=== PATIENT | male | born 1935 | race Caucasian/White ===

== ENCOUNTER → 2016-12-15 | Outpatient (CLI) | payer MEDICARE, BC ==
[2016-12-15 13:43] LABS: ALT 35 U/L (21-72); AST 34 U/L (17-59); Alkaline Phosphatase 103 U/L (38-126); Anion Gap 9 mmol/L; Blood Urea Nitrogen 14 mg/dL (9-20); Calcium 9.7 mg/dL (8.4-10.2); Carbon Dioxide 30 mmol/L (22-30); Chloride 105 mmol/L (98-107); Cholesterol 143 mg/dL (<200); Glucose 87 mg/dL (74-99); HDL Cholesterol 44 mg/dL (40-60); Non-African American GFR(MDRD) >60 (>60 ml/min/1.73 sqM); Potassium 3.6 mmol/L (3.5-5.1); Sodium 144 mmol/L (137-145); Total Bilirubin 0.7 mg/dL (0.2-1.3); Total Protein 6.8 g/dL (6.3-8.2); Triglycerides 144 mg/dL (<150)
== END | disposition home or self-care (01) ==
LOC: LABWHC1 12:28
PROVIDERS: ATTEND Internal Medicine Interventional Cardiology
DX: E78.2 Mixed hyperlipidemia (principal)
CPT/HCPCS: 36415; 80053; 80061

== ENCOUNTER 2019-06-10 16:38 | Inpatient (IN) | payer MEDICARE, BC ==
[2019-06-10] MEDS ORDERED: DIPH,PERTUS(ACELL)TETVAC-LF 0.5 ML VIAL IM ONE (16:50)
[2019-06-10] MEDS ORDERED: SODIUM CHLORIDE 0.9% 500 ML 500 ML IV STA (16:50)
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
[2019-06-10 17:11] LABS: Basophils % (A) 0 %; Eosinophils # (A) 0.3 k/uL (0-0.7); Eosinophils % (A) 4 %; HCT 39.7 % (39.0-53.0); HGB 13.1 gm/dL (13.0-17.5); Lymphocytes # (A) 1.3 k/uL (1.0-4.8); Lymphocytes % (A) 19 %; MCH 30.1 pg (25.0-35.0); MCV 91.3 fL (80.0-100.0); Monocytes # (A) 0.5 k/uL (0-1.0); Monocytes % (A) 7 %; Neutrophils # (A) 4.5 k/uL (1.3-7.7); Neutrophils % (A) 67 %; Platelet Count 288 k/uL (150-450); RBC 4.35 m/uL (4.30-5.90); RDW 14.6 % (11.5-15.5); WBC 6.7 k/uL (3.8-10.6)
[2019-06-10 17:20] LABS: ALT 21 U/L (21-72); AST 35 U/L (17-59); African American GFR (CKD) 71 (>60 ml/min/1.73 sqM); Alcohol <10 mg/dL; Alkaline Phosphatase 108 U/L (38-126); Anion Gap 6 mmol/L; Blood Urea Nitrogen 15 mg/dL (9-20); Calcium 9.7 mg/dL (8.4-10.2); Carbon Dioxide 30 mmol/L (22-30); Chloride 105 mmol/L (98-107); Glucose 121 mg/dL (74-99); Potassium 3.4 mmol/L (3.5-5.1); Sodium 141 mmol/L (137-145); Total Bilirubin 0.6 mg/dL (0.2-1.3); Total Protein 6.9 g/dL (6.3-8.2)
[2019-06-10 17:24] LABS: INR 1.5 (<1.2); Partial Thromboplastin Time 29.3 sec (22.0-30.0); Prothrombin Time 15.1 sec (9.0-12.0)
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
[2019-06-10] MEDS ORDERED: NALOXONE 0.4 MG/ML 1 ML VIAL IV PRN (19:12)
[2019-06-10] MEDS ORDERED: ACETAMINOPHEN TAB 325 MG TAB PO PRN (19:12)
[2019-06-11] MEDS ORDERED: TEMAZEPAM 15 MG CAP PO PRN (00:15)
[2019-06-11] MEDS: ACETAMINOPHEN TAB 500 MG TAB PO SCH ×2 (00:37→21:16)
[2019-06-11 01:57] LABS: Appearance,Urine Clear (Clear); Bilirubin,Urine Negative (Negative); Blood,Urine Negative (Negative); Color,Urine Yellow; Glucose,Urine (UA) Negative (Negative); Ketones,Urine Negative (Negative); Leukocyte Esterase,Urine Trace (Negative); Mucus,Urine Rare /hpf; Nitrite,Urine Negative (Negative); PH, Urine 5.5 (5.0-8.0); Protein,Urine Trace (Negative); RBC,Urine <1 /hpf (0-5); Specific Gravity,Urine 1.026 (1.001-1.035); Squamous Epithelial Cell,Urine 1 /hpf (0-4); Urobilinogen,Urine <2.0 mg/dL (<2.0)
[2019-06-11 02:08] LABS: Amphetamine Screen,Urine Not Detected (NotDetected); Barbiturate Screen,Urine Not Detected (NotDetected); Benzodiazepines Screen,Urine Not Detected (NotDetected); Cocaine Screen,Urine Not Detected (NotDetected); Methadone Screen, Urine Not Detected (NotDetected); Opiate Screen,Urine Not Detected (NotDetected); Oxycodone Screen, Urine Not Detected (NotDetected); Phencyclidine Screen,Urine Not Detected (NotDetected); Tricyclic Antidepressant,Urine Not Detected (NotDetected); Urn Cannabinoid Scrn Not Detected (NotDetected)
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
[2019-06-11] MEDS: HYDROCHLOROTHIAZIDE 25 MG TAB PO SCH (07:19)
[2019-06-11] MEDS: MULTIVITAMINS, THERA 1 EACH TAB PO SCH (07:19)
[2019-06-11] MEDS: ASPIRIN 81 MG PO SCH (07:19)
[2019-06-11] MEDS: ATORVASTATIN 40 MG TAB PO SCH (07:19)
[2019-06-11] MEDS: FINASTERIDE 5 MG TAB PO SCH (07:19)
[2019-06-11] MEDS: CHOLECALCIFEROL 1,000 UNIT TAB PO SCH (07:19)
[2019-06-11] MEDS: NICOTINE 14MG/24HR PATCH TRANSDERM SCH (07:20)
[2019-06-11] MEDS: SERTRALINE 100 MG TAB PO SCH (07:20)
[2019-06-11 08:24] LABS: INR 1.5 (<1.2)
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
[2019-06-11] MEDS: BACITRACIN 500 UNIT/GM OINT 28.4 GM TUBE TOPICAL SCH ×2 (15:23→22:36)
[2019-06-11] MEDS: traMADol 50 MG TAB PO SCH ×2 (16:49→21:15)
[2019-06-11] MEDS: ALPRAZolam 0.25 MG TAB PO PRN (21:15)
[2019-06-11] MEDS: diphenhydrAMINE 25 MG CAP PO SCH (21:16)
[2019-06-12 07:58] LABS: Basophils % (A) 0 %; Eosinophils # (A) 0.3 k/uL (0-0.7); Eosinophils % (A) 3 %; HCT 32.8 % (39.0-53.0); HGB 10.4 gm/dL (13.0-17.5); INR 1.5 (<1.2); Lymphocytes % (A) 10 %; MCH 29.8 pg (25.0-35.0); MCHC 31.8 g/dL (31.0-37.0); MCV 93.5 fL (80.0-100.0); Mean Platelet Volume 7.2; Monocytes # (A) 0.6 k/uL (0-1.0); Monocytes % (A) 6 %; Neutrophils # (A) 7.9 k/uL (1.3-7.7); Neutrophils % (A) 79 %; Platelet Count 228 k/uL (150-450); Prothrombin Time 14.9 sec (9.0-12.0); RBC 3.51 m/uL (4.30-5.90); RDW 14.5 % (11.5-15.5)
[2019-06-12] MEDS: CHOLECALCIFEROL 1,000 UNIT TAB PO SCH (08:03)
[2019-06-12] MEDS: FINASTERIDE 5 MG TAB PO SCH (08:03)
[2019-06-12] MEDS: SERTRALINE 100 MG TAB PO SCH (08:03)
[2019-06-12] MEDS: ASPIRIN 81 MG PO SCH (08:03)
[2019-06-12] MEDS: MULTIVITAMINS, THERA 1 EACH TAB PO SCH (08:03)
[2019-06-12] MEDS: ATORVASTATIN 40 MG TAB PO SCH (08:03)
[2019-06-12] MEDS: NICOTINE 14MG/24HR PATCH TRANSDERM SCH (08:03)
[2019-06-12] MEDS: HYDROCHLOROTHIAZIDE 25 MG TAB PO SCH (08:03)
[2019-06-12] MEDS: traMADol 50 MG TAB PO SCH ×4 (08:04→20:56)
[2019-06-12] MEDS: BACITRACIN 500 UNIT/GM OINT 28.4 GM TUBE TOPICAL SCH ×2 (08:04→20:45)
[2019-06-12 08:05] LABS: African American GFR (CKD) >90 (>60 ml/min/1.73 sqM); Anion Gap 5 mmol/L; Blood Urea Nitrogen 12 mg/dL (9-20); Calcium 9.2 mg/dL (8.4-10.2); Carbon Dioxide 30 mmol/L (22-30); Chloride 104 mmol/L (98-107); Glucose 89 mg/dL (74-99); Potassium 3.1 mmol/L (3.5-5.1); Sodium 139 mmol/L (137-145)
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
[2019-06-12] MEDS: ALPRAZolam 0.25 MG TAB PO PRN ×2 (09:54→20:55)
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
[2019-06-12] MEDS: ACETAMINOPHEN TAB 500 MG TAB PO SCH (20:55)
[2019-06-12] MEDS: diphenhydrAMINE 25 MG CAP PO SCH (20:56)
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
[2019-06-13 09:13] LABS: African American GFR (CKD) >90 (>60 ml/min/1.73 sqM); Anion Gap 5 mmol/L; Blood Urea Nitrogen 11 mg/dL (9-20); Carbon Dioxide 31 mmol/L (22-30); Chloride 104 mmol/L (98-107); Glucose 101 mg/dL (74-99); Sodium 140 mmol/L (137-145)
[2019-06-13 09:19] LABS: INR 1.2 (<1.2); Potassium 2.7 mmol/L (3.5-5.1); Prothrombin Time 12.3 sec (9.0-12.0)
[2019-06-13 09:27] LABS: Basophils % (A) 0 %; Eosinophils # (A) 0.5 k/uL (0-0.7); Eosinophils % (A) 6 %; HCT 32.3 % (39.0-53.0); HGB 10.4 gm/dL (13.0-17.5); Lymphocytes # (A) 0.9 k/uL (1.0-4.8); Lymphocytes % (A) 10 %; MCH 30.2 pg (25.0-35.0); MCHC 32.1 g/dL (31.0-37.0); MCV 93.9 fL (80.0-100.0); Mean Platelet Volume 7.2; Monocytes # (A) 0.5 k/uL (0-1.0); Monocytes % (A) 6 %; Neutrophils # (A) 6.6 k/uL (1.3-7.7); Neutrophils % (A) 76 %; Platelet Count 246 k/uL (150-450); RBC 3.44 m/uL (4.30-5.90); RDW 14.7 % (11.5-15.5); WBC 8.7 k/uL (3.8-10.6)
[2019-06-13] MEDS: ASPIRIN 81 MG PO SCH (09:39)
[2019-06-13] MEDS: CHOLECALCIFEROL 1,000 UNIT TAB PO SCH (09:39)
[2019-06-13] MEDS: SERTRALINE 100 MG TAB PO SCH (09:40)
[2019-06-13] MEDS: FINASTERIDE 5 MG TAB PO SCH (09:40)
[2019-06-13] MEDS: HYDROCHLOROTHIAZIDE 25 MG TAB PO SCH (09:40)
[2019-06-13] MEDS: MULTIVITAMINS, THERA 1 EACH TAB PO SCH (09:42)
[2019-06-13] MEDS: traMADol 50 MG TAB PO SCH ×4 (09:43→22:41)
[2019-06-13] MEDS: BACITRACIN 500 UNIT/GM OINT 28.4 GM TUBE TOPICAL SCH ×2 (09:44→23:03)
[2019-06-13] MEDS: NICOTINE 14MG/24HR PATCH TRANSDERM SCH (09:44)
[2019-06-13] MEDS: ATORVASTATIN 40 MG TAB PO SCH (09:44)
[2019-06-13] MEDS ORDERED: Potassium Replacement Protocol 1 EACH MISC MISCELLANE PRN (09:47)
[2019-06-13] MEDS: POTASSIUM CHLORIDE ER 20 MEQ TAB.ER PO SCH ×5 (09:57→17:34)
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
[2019-06-13] MEDS ORDERED: WARFARIN 2.5 MG TAB PO SCH (18:00)
[2019-06-13] MEDS: ACETAMINOPHEN TAB 500 MG TAB PO SCH (21:14)
[2019-06-13] MEDS: diphenhydrAMINE 25 MG CAP PO SCH (21:15)
[2019-06-13] MEDS: ALPRAZolam 0.25 MG TAB PO PRN (21:15)
[2019-06-14 08:21] VITALS: BP 140/65; PULSE 51; RESP 16; TEMP 98.1
[2019-06-14 09:03] LABS: INR 1.1 (<1.2); Prothrombin Time 11.1 sec (9.0-12.0)
[2019-06-14] MEDS: CHOLECALCIFEROL 1,000 UNIT TAB PO SCH (10:21)
[2019-06-14] MEDS: ASPIRIN 81 MG PO SCH (10:21)
[2019-06-14] MEDS: SERTRALINE 100 MG TAB PO SCH (10:21)
[2019-06-14] MEDS: MULTIVITAMINS, THERA 1 EACH TAB PO SCH (10:21)
[2019-06-14] MEDS: traMADol 50 MG TAB PO SCH (10:22)
[2019-06-14] MEDS: FINASTERIDE 5 MG TAB PO SCH (10:22)
[2019-06-14] MEDS: BACITRACIN 500 UNIT/GM OINT 28.4 GM TUBE TOPICAL SCH (10:24)
[2019-06-14] MEDS: ATORVASTATIN 40 MG TAB PO SCH (10:24)
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
[2019-06-14] MEDS: HYDROCHLOROTHIAZIDE 25 MG TAB PO SCH (10:48)
== END 2019-06-14 12:28 | DRG 605 ==
LOC: EC 16:38 → 4SSUR 19:15 → OBSVTOIN 06-11 12:17
PROVIDERS: ADMIT Family Medicine; ATTEND Family Medicine
DX: S81.831A Puncture wound without foreign body, right lower leg, initial encounter (principal); I69.354 Hemiplegia and hemiparesis following cerebral infarction affecting left non-dominant side; I48.0 Paroxysmal atrial fibrillation; R00.1 Bradycardia, unspecified; R79.1 Abnormal coagulation profile; E87.6 Hypokalemia; F17.200 Nicotine dependence, unspecified, uncomplicated; I10 Essential (primary) hypertension; H91.90 Unspecified hearing loss, unspecified ear; H54.7 Unspecified visual loss; R26.9 Unspecified abnormalities of gait and mobility; Z79.01 Long term (current) use of anticoagulants; Z79.82 Long term (current) use of aspirin; Z79.899 Other long term (current) drug therapy; Z88.5 Allergy status to narcotic agent; Z95.2 Presence of prosthetic heart valve; Z85.51 Personal history of malignant neoplasm of bladder; Z86.14 Personal history of Methicillin resistant Staphylococcus aureus infection; Z86.79 Personal history of other diseases of the circulatory system; Z80.1 Family history of malignant neoplasm of trachea, bronchus and lung; Z82.49 Family history of ischemic heart disease and other diseases of the circulatory system; Z82.62 Family history of osteoporosis; W34.00XA Accidental discharge from unspecified firearms or gun, initial encounter; Y92.9 Unspecified place or not applicable
CPT/HCPCS: 36415; 71045; 72170; 80048; 80053; 80306; 80320; 81001; 83605; 84132; 84443; 84484; 85025; 85610; 85730; 86850; 86900; 86901; 90471; 90715; 93005; 96361; 96365; 99285

== ENCOUNTER 2019-06-30 13:50 | Emergency (ER) | payer MEDICARE, BC ==
[2019-06-30 14:02] VITALS: RESP 18
[2019-06-30] MEDS ORDERED: SODIUM CHLORIDE 0.9% 1,000 ML IV STA (14:08)
--- NOTE | 2019-06-30 14:09 | ED ---
Male Urogenital HPI - General Chief complaint: Urogenital Stated complaint: Blood in urine Time Seen by Provider: 06/30/19 13:54 Source: EMS, RN notes reviewed, old records reviewed Mode of arrival: EMS Limitations: physical limitation - History of Present Illness Initial comments: This is an 80-year-old male the ER for evaluation. Patient has history of prostate disease, history of bladder cancer, patient coming in for blood in the urine today. No significant abdominal pain. Patient is not lightheaded dizzy or weak. Patient does take Coumadin. Patient has no other significant complaints. No fevers. Does have history of UTI MD Complaint: dysuria (Hematuria) -: hour(s) Location: abdomen Radiation: none Severity: mild Consistency: constant Improves with: none Worsens with: urination indwelling catheter (History of needing Salcedo cath for urinary retention) Reports: urinary retention, blood in urine - Related Data Home Medications Medication Instructions Recorded Confirmed Acetaminophen/Diphenhydramine 2 tab PO HS 06/10/19 06/30/19 [Tylenol PM 500-25mg] Atorvastatin Calcium [Lipitor] 40 mg PO HS 06/10/19 06/30/19 Cholecalciferol [Vitamin D3 (25 1,000 unit PO DAILY 06/10/19 06/30/19 Mcg = 1000 Iu)] Hydrochlorothiazide 25 mg PO MOWEFR 06/10/19 06/30/19 Hydrochlorothiazide [Hydrodiuril] 12.5 mg PO SUTUTHSA 06/10/19 06/30/19 Multivitamins, Thera [Multivitamin 1 tab PO DAILY 06/10/19 06/30/19 (formulary)] Sertraline [Zoloft] 150 mg PO DAILY 06/10/19 06/30/19 Warfarin [Coumadin] 2.5 mg PO SUTUTHSA 06/10/19 06/30/19 ALPRAZolam [Xanax] 0.25 mg PO HS 06/30/19 06/30/19 Potassium Chloride ER [K-Dur 20] 20 meq PO DAILY 06/30/19 06/30/19 Warfarin Sodium [Coumadin] 5 mg PO MOWEFR 06/30/19 06/30/19 Previous Rx's Medication Instructions Recorded Cephalexin [Keflex] 500 mg PO Q6HR #28 cap 06/30/19 Allergies Allergy/AdvReac Type Severity Reaction Status Date / Time morphine AdvReac Hallucinati Verified 06/30/19 15:12 ons Review of Systems ROS Statement: Those systems with pertinent positive or pertinent negative responses have been documented in the HPI. ROS Other: All systems not noted in ROS Statement are negative. Past Medical History Past Medical History: Cancer, CVA/TIA Additional Past Medical History / Comment(s): aneurysm History of Any Multi-Drug Resistant Organisms: MRSA Date of last positivie culture/infection: 07/13/2014 MDRO Source:: Right Eye Past Surgical History: Bladder Surgery, Prostate Surgery Additional Past Surgical History / Comment(s): aortic valve rep. 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 Past Anesthesia/Blood Transfusion Reactions: No Reported Reaction Past Psychological History: No Psychological Hx Reported Smoking Status: Current every day smoker Past Alcohol Use History: None Reported Past Drug Use History: None Reported - Past Family History Father Family Medical History: Cancer Additional Family Medical History / Comment(s): lung cancer Mother Family Medical History: Hypertension Additional Family Medical History / Comment(s): osteoporosis General Exam Limitations: physical limitation General appearance: alert, in no apparent distress Head exam: Present: atraumatic, normocephalic, normal inspection Eye exam: Present: normal appearance, PERRL, EOMI. Absent: scleral icterus, conjunctival injection, periorbital swelling ENT exam: Present: normal exam, mucous membranes moist Neck exam: Present: normal inspection. Absent: tenderness, meningismus, lymphadenopathy Respiratory exam: Present: normal lung sounds bilaterally. Absent: respiratory distress, wheezes, rales, rhonchi, stridor Cardiovascular Exam: Present: regular rate, normal rhythm, normal heart sounds. Absent: systolic murmur, diastolic murmur, rubs, gallop, clicks GI/Abdominal exam: Present: soft, normal bowel sounds. Absent: distended, tenderness, guarding, rebound, rigid Extremities exam: Present: normal inspection, full ROM, normal capillary refill. Absent: tenderness, pedal edema, joint swelling, calf tenderness Back exam: Present: normal inspection Neurological exam: Present: alert, oriented X3, CN II-XII intact Psychiatric exam: Present: normal affect, normal mood Skin exam: Present: warm, dry, intact, normal color. Absent: rash Course Vital Signs 06/30/19 06/30/19 06/30/19 13:58 14:30 15:36 Temperature 98.3 F 98.7 F Pulse Rate 77 52 L 55 L Respiratory 18 18 18 Rate Blood Pressure 180/89 150/86 O2 Sat by Pulse 97 96 98 Oximetry Medical Decision Making - Medical Decision Making 80 female the ER for hematuria. Coumadin level is 2, we'll hold neck shows of Coumadin. Encouraged increased fluid intake, will place on antibiotics pending cultures and patient can be discharged - Lab Data Result diagrams: 06/30/19 14:08 06/30/19 14:08 Lab Results 06/30/19 06/30/19 06/30/19 Range/Units 14:08 14:08 14:08 WBC 13.7 H (3.8-10.6) k/uL RBC 3.92 L (4.30-5.90) m/uL Hgb 11.7 L (13.0-17.5) gm/dL Hct 37.1 L (39.0-53.0) % MCV 94.6 (80.0-100.0) fL MCH 29.9 (25.0-35.0) pg MCHC 31.6 (31.0-37.0) g/dL RDW 14.9 (11.5-15.5) % Plt Count 458 H (150-450) k/uL Neutrophils % 85 % Lymphocytes % 6 % Monocytes % 5 % Eosinophils % 2 % Basophils % 0 % Neutrophils # 11.6 H (1.3-7.7) k/uL Lymphocytes # 0.9 L (1.0-4.8) k/uL Monocytes # 0.7 (0-1.0) k/uL Eosinophils # 0.3 (0-0.7) k/uL Basophils # 0.0 (0-0.2) k/uL PT 19.2 H (9.0-12.0) sec INR 2.0 H (<1.2) APTT 33.1 H (22.0-30.0) sec Sodium 140 (137-145) mmol/L Potassium 3.6 (3.5-5.1) mmol/L Chloride 104 (98-107) mmol/L Carbon Dioxide 29 (22-30) mmol/L Anion Gap 7 mmol/L BUN 12 (9-20) mg/dL Creatinine 0.86 (0.66-1.25) mg/dL Est GFR (CKD-EPI)AfAm >90 (>60 ml/min/1.73 sqM) Est GFR (CKD-EPI)NonAf 80 (>60 ml/min/1.73 sqM) Glucose 114 H (74-99) mg/dL Calcium 9.7 (8.4-10.2) mg/dL Phosphorus 3.2 (2.5-4.5) mg/dL Magnesium 1.9 (1.6-2.3) mg/dL Total Bilirubin 0.9 (0.2-1.3) mg/dL AST 45 (17-59) U/L ALT 26 (21-72) U/L Alkaline Phosphatase 102 (38-126) U/L Creatine Kinase 160 (55-170) U/L Troponin I (0.000-0.034) ng/mL Total Protein 7.0 (6.3-8.2) g/dL Albumin 3.8 (3.5-5.0) g/dL Urine Color Urine Appearance (Clear) Urine RBC (0-5) /hpf Urine WBC (0-5) /hpf 06/30/19 06/30/19 Range/Units 14:08 14:19 WBC (3.8-10.6) k/uL RBC (4.30-5.90) m/uL Hgb (13.0-17.5) gm/dL Hct (39.0-53.0) % MCV (80.0-100.0) fL MCH (25.0-35.0) pg MCHC (31.0-37.0) g/dL RDW (11.5-15.5) % Plt Count (150-450) k/uL Neutrophils % % Lymphocytes % % Monocytes % % Eosinophils % % Basophils % % Neutrophils # (1.3-7.7) k/uL Lymphocytes # (1.0-4.8) k/uL Monocytes # (0-1.0) k/uL Eosinophils # (0-0.7) k/uL Basophils # (0-0.2) k/uL PT (9.0-12.0) sec INR (<1.2) APTT (22.0-30.0) sec Sodium (137-145) mmol/L Potassium (3.5-5.1) mmol/L Chloride (98-107) mmol/L Carbon Dioxide (22-30) mmol/L Anion Gap mmol/L BUN (9-20) mg/dL Creatinine (0.66-1.25) mg/dL Est GFR (CKD-EPI)AfAm (>60 ml/min/1.73 sqM) Est GFR (CKD-EPI)NonAf (>60 ml/min/1.73 sqM) Glucose (74-99) mg/dL Calcium (8.4-10.2) mg/dL Phosphorus (2.5-4.5) mg/dL Magnesium (1.6-2.3) mg/dL Total Bilirubin (0.2-1.3) mg/dL AST (17-59) U/L ALT (21-72) U/L Alkaline Phosphatase (38-126) U/L Creatine Kinase (55-170) U/L Troponin I 0.030 (0.000-0.034) ng/mL Total Protein (6.3-8.2) g/dL Albumin (3.5-5.0) g/dL Urine Color Dark Red Urine Appearance Bloody (Clear) Urine RBC >182 H (0-5) /hpf Urine WBC >182 H (0-5) /hpf - EKG Data -: EKG Interpreted by Me (EKG shows sinus bradycardia rate of 56, NC 206, QRS 02, QTc 451) Disposition Clinical Impression: Urinary retention Disposition: HOME SELF-CARE Condition: Good Instructions (If sedation given, give patient instructions): Urinary Retention in Men (ED), Urinary Tract Infection in Men (ED) Prescriptions: Cephalexin [Keflex] 500 mg PO Q6HR #28 cap Is patient prescribed a controlled substance at d/c from ED?: No Referrals: Syed Caal MD [Primary Care Provider] - 1-2 days
[2019-06-30 14:21] LABS: Basophils % (A) 0 %; Eosinophils # (A) 0.3 k/uL (0-0.7); Eosinophils % (A) 2 %; HCT 37.1 % (39.0-53.0); HGB 11.7 gm/dL (13.0-17.5); Lymphocytes # (A) 0.9 k/uL (1.0-4.8); Lymphocytes % (A) 6 %; MCH 29.9 pg (25.0-35.0); MCHC 31.6 g/dL (31.0-37.0); MCV 94.6 fL (80.0-100.0); Mean Platelet Volume 6.8; Monocytes # (A) 0.7 k/uL (0-1.0); Monocytes % (A) 5 %; Neutrophils # (A) 11.6 k/uL (1.3-7.7); Neutrophils % (A) 85 %; Platelet Count 458 k/uL (150-450); RBC 3.92 m/uL (4.30-5.90); RDW 14.9 % (11.5-15.5); WBC 13.7 k/uL (3.8-10.6)
[2019-06-30 14:30] LABS: Partial Thromboplastin Time 33.1 sec (22.0-30.0); Prothrombin Time 19.2 sec (9.0-12.0)
[2019-06-30 14:31] LABS: ALT 26 U/L (21-72); AST 45 U/L (17-59); African American GFR (CKD) >90 (>60 ml/min/1.73 sqM); Albumin 3.8 g/dL (3.5-5.0); Alkaline Phosphatase 102 U/L (38-126); Anion Gap 7 mmol/L; Blood Urea Nitrogen 12 mg/dL (9-20); Calcium 9.7 mg/dL (8.4-10.2); Carbon Dioxide 29 mmol/L (22-30); Chloride 104 mmol/L (98-107); Creatine Kinase 160 U/L (55-170); Glucose 114 mg/dL (74-99); Magnesium 1.9 mg/dL (1.6-2.3); Non-African American GFR(CKD) 80 (>60 ml/min/1.73 sqM); Phosphorus 3.2 mg/dL (2.5-4.5); Potassium 3.6 mmol/L (3.5-5.1); Sodium 140 mmol/L (137-145); Total Bilirubin 0.9 mg/dL (0.2-1.3)
[2019-06-30 14:34] LABS: RBC,Urine >182 /hpf (0-5); WBC,Urine >182 /hpf (0-5)
[2019-06-30 14:35] VITALS: BP 150/86
[2019-06-30 14:38] LABS: Appearance,Urine Bloody (Clear); Color,Urine Dark Red
[2019-06-30] MEDS ORDERED: cefTRIAXone IN SWFI 1,000 MG/10 ML SYRINGE IVP STA (15:25)
[2019-06-30 15:39] VITALS: PULSE 55; TEMP 98.7
== END 2019-06-30 16:15 | disposition home or self-care (01) ==
LOC: EC 13:50
DX: R33.9 Retention of urine, unspecified (principal); R31.9 Hematuria, unspecified; F17.200 Nicotine dependence, unspecified, uncomplicated; Z79.01 Long term (current) use of anticoagulants; Z79.899 Other long term (current) drug therapy; Z88.5 Allergy status to narcotic agent; Z87.440 Personal history of urinary (tract) infections; Z98.890 Other specified postprocedural states; Z86.14 Personal history of Methicillin resistant Staphylococcus aureus infection; Z86.73 Personal history of transient ischemic attack (TIA), and cerebral infarction without residual deficits
CPT/HCPCS: 36415; 93005; 80053; 82550; 83735; 84100; 84484; 85025; 85610; 85730; 81001; 87086; 87077; 87186; 99284; 96374; 96361; J0696

== ENCOUNTER 2019-10-23 13:54 | Inpatient (IN) | payer MEDICARE, BC ==
[2019-10-23] MEDS ORDERED: SODIUM CHLORIDE 0.9% 1,000 ML IV STA (14:02)
--- NOTE | 2019-10-23 14:08 | ED ---
General Adult HPI - General Stated complaint: WEAKNESS Time Seen by Provider: 10/23/19 13:55 Source: patient, RN notes reviewed, old records reviewed - History of Present Illness Initial comments: This is an 84-year-old male who presents emergency Department complaining of weakness. Patient states she was unable to get up and walk on his own today. Patient states she has had a stroke and he has left-sided weakness in the leg and complete paralysis of the arm but he is able to get up and walk with a walker normally. Patient states today he just was unable to do it. Patient states he has been having difficulty sleeping over the last few nights. Patient denies any pain patient denies any recent trauma. Patient denies any falls. Patient denies any headache patient denies any numbness or focal weakness. Patient denies any chest pain or palpitations. Patient denies any recent fever chills or cough. Patient denies any shortness of breath or any difficulty breathing. Patient denies abdominal pain patient denies any nausea vomiting diarrhea. Patient denies any fever or chills. - Related Data Home Medications Medication Instructions Recorded Confirmed Acetaminophen/Diphenhydramine 2 tab PO HS 06/10/19 10/23/19 [Tylenol PM 500-25mg] Atorvastatin Calcium [Lipitor] 40 mg PO HS 06/10/19 10/23/19 Cholecalciferol [Vitamin D3 (25 2,000 unit PO DAILY 06/10/19 10/23/19 Mcg = 1000 Iu)] Hydrochlorothiazide 25 mg PO MOWEFR 06/10/19 10/23/19 Hydrochlorothiazide [Hydrodiuril] 12.5 mg PO SUTUTHSA 06/10/19 10/23/19 Multivitamins, Thera [Multivitamin 1 tab PO DAILY 06/10/19 10/23/19 (formulary)] Sertraline [Zoloft] 200 mg PO DAILY 06/10/19 10/23/19 Warfarin [Coumadin] 2.5 mg PO SUMOTUTHFRSA 06/10/19 10/23/19 Potassium Chloride ER [K-Dur 20] 20 meq PO DAILY 06/30/19 10/23/19 Warfarin Sodium [Coumadin] 5 mg PO WE 06/30/19 10/23/19 Aspirin EC [Ecotrin Low Dose] 81 mg PO DAILY 10/23/19 10/23/19 Finasteride [Proscar] 5 mg PO DAILY 10/23/19 10/23/19 amLODIPine [Norvasc] 5 mg PO HS 10/23/19 10/23/19 Allergies Allergy/AdvReac Type Severity Reaction Status Date / Time morphine AdvReac Hallucinati Verified 10/23/19 14:40 ons Review of Systems ROS Statement: Those systems with pertinent positive or pertinent negative responses have been documented in the HPI. ROS Other: All systems not noted in ROS Statement are negative. Past Medical History Past Medical History: Cancer, CVA/TIA Additional Past Medical History / Comment(s): aneurysm History of Any Multi-Drug Resistant Organisms: MRSA Date of last positivie culture/infection: 07/13/2014 MDRO Source:: Right Eye Past Surgical History: Bladder Surgery, Prostate Surgery Additional Past Surgical History / Comment(s): aortic valve rep. 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 Past Anesthesia/Blood Transfusion Reactions: No Reported Reaction Past Psychological History: No Psychological Hx Reported Smoking Status: Current every day smoker Past Alcohol Use History: None Reported Past Drug Use History: None Reported - Past Family History Father Family Medical History: Cancer Additional Family Medical History / Comment(s): lung cancer Mother Family Medical History: Hypertension Additional Family Medical History / Comment(s): osteoporosis General Exam - General Exam Comments Initial Comments: GENERAL: Patient is well-developed and well-nourished. Patient is nontoxic and well- hydrated and is in mild distress. ENT: Neck is soft and supple. No significant lymphadenopathy is noted. Oropharynx is clear. Moist mucous membranes. Neck has full range of motion without eliciting any pain. EYES: The sclera were anicteric and conjunctiva were pink and moist. Extraocular movements were intact and pupils were equal round and reactive to light. Eye lids were unremarkable. PULMONARY: Unlabored respirations. Good breath sounds bilaterally. No audible rales rhonchi or wheezing was noted. CARDIOVASCULAR: There is a regular rate and rhythm without any murmurs gallops or rubs. ABDOMEN: Soft and nontender with normal bowel sounds. SKIN: Skin is clear with no lesions or rashes and otherwise unremarkable. NEUROLOGIC: Patient is alert and oriented x3. Cranial nerves II through XII are grossly intact. Motor and sensory are also intact. Normal speech, volume and content. Symmetrical smile. MUSCULOSKELETAL: Patient is able to lift the left leg off the bed a little which she states is normal. Patient has no ability to move the left arm PSYCHIATRIC: Normal psychiatric evaluation. Course Vital Signs 10/23/19 10/23/19 13:56 14:46 Temperature 97.7 F Pulse Rate 73 81 Respiratory 18 18 Rate Blood Pressure 117/78 130/71 O2 Sat by Pulse 93 L 95 Oximetry Medical Decision Making - Medical Decision Making EKG showed normal sinus rhythm at 60 bpm DC interval 188 QRS is 96 QT interval 458 QTC is 487. Patient has some T-wave inversions in precordial leads which was seen on previous EKG. There are no ST segment elevation. I started the patient 2 g of Rocephin for the urinary tract infection. Patient also received a bolus of fluid in the emergency department. I spoke with Dr. Caal agreed to admit the patient admitted the patient wrote admitting orders. I continued antibiotics on the floor as well as fluids on the floor. - Lab Data Result diagrams: 10/23/19 14:10 10/23/19 14:10 Lab Results 10/23/19 10/23/19 10/23/19 Range/Units 14:10 14:10 14:10 WBC 22.2 H (3.8-10.6) k/uL RBC 4.28 L (4.30-5.90) m/uL Hgb 12.7 L (13.0-17.5) gm/dL Hct 38.7 L (39.0-53.0) % MCV 90.5 (80.0-100.0) fL MCH 29.7 (25.0-35.0) pg MCHC 32.9 (31.0-37.0) g/dL RDW 14.5 (11.5-15.5) % Plt Count 279 (150-450) k/uL Neutrophils % 90 % Lymphocytes % 4 % Monocytes % 5 % Eosinophils % 0 % Basophils % 0 % Neutrophils # 20.0 H (1.3-7.7) k/uL Lymphocytes # 0.9 L (1.0-4.8) k/uL Monocytes # 1.2 H (0-1.0) k/uL Eosinophils # 0.0 (0-0.7) k/uL Basophils # 0.0 (0-0.2) k/uL PT (9.0-12.0) sec INR (<1.2) APTT (22.0-30.0) sec Sodium 138 (137-145) mmol/L Potassium 3.1 L (3.5-5.1) mmol/L Chloride 100 (98-107) mmol/L Carbon Dioxide 30 (22-30) mmol/L Anion Gap 8 mmol/L BUN 11 (9-20) mg/dL Creatinine 0.88 (0.66-1.25) mg/dL Est GFR (CKD-EPI)AfAm >90 (>60 ml/min/1.73 sqM) Est GFR (CKD-EPI)NonAf 79 (>60 ml/min/1.73 sqM) Glucose 122 H (74-99) mg/dL Plasma Lactic Acid Abiel 2.2 H* (0.7-2.0) mmol/L Calcium 9.6 (8.4-10.2) mg/dL Magnesium 1.6 (1.6-2.3) mg/dL Total Bilirubin 1.0 (0.2-1.3) mg/dL AST 39 (17-59) U/L ALT 19 L (21-72) U/L Alkaline Phosphatase 120 (38-126) U/L Troponin I (0.000-0.034) ng/mL Total Protein 6.9 (6.3-8.2) g/dL Albumin 3.9 (3.5-5.0) g/dL Urine Color Urine Appearance (Clear) Urine pH (5.0-8.0) Ur Specific [place] (1.001-1.035) Urine Protein (Negative) Urine Glucose (UA) (Negative) Urine Ketones (Negative) Urine Blood (Negative) Urine Nitrite (Negative) Urine Bilirubin (Negative) Urine Urobilinogen (<2.0) mg/dL Ur Leukocyte Esterase (Negative) Urine RBC (0-5) /hpf Urine WBC (0-5) /hpf Urine WBC Clumps (None) /hpf Ur Squamous Epith Cells (0-4) /hpf Amorphous Sediment (None) /hpf Urine Bacteria (None) /hpf Urine Mucus (None) /hpf 10/23/19 10/23/19 10/23/19 Range/Units 14:10 14:10 14:10 WBC (3.8-10.6) k/uL RBC (4.30-5.90) m/uL Hgb (13.0-17.5) gm/dL Hct (39.0-53.0) % MCV (80.0-100.0) fL MCH (25.0-35.0) pg MCHC (31.0-37.0) g/dL RDW (11.5-15.5) % Plt Count (150-450) k/uL Neutrophils % % Lymphocytes % % Monocytes % % Eosinophils % % Basophils % % Neutrophils # (1.3-7.7) k/uL Lymphocytes # (1.0-4.8) k/uL Monocytes # (0-1.0) k/uL Eosinophils # (0-0.7) k/uL Basophils # (0-0.2) k/uL PT 20.9 H (9.0-12.0) sec INR 2.1 H (<1.2) APTT 35.5 H (22.0-30.0) sec Sodium (137-145) mmol/L Potassium (3.5-5.1) mmol/L Chloride (98-107) mmol/L Carbon Dioxide (22-30) mmol/L Anion Gap mmol/L BUN (9-20) mg/dL Creatinine (0.66-1.25) mg/dL Est GFR (CKD-EPI)AfAm (>60 ml/min/1.73 sqM) Est GFR (CKD-EPI)NonAf (>60 ml/min/1.73 sqM) Glucose (74-99) mg/dL Plasma Lactic Acid Abiel (0.7-2.0) mmol/L Calcium (8.4-10.2) mg/dL Magnesium (1.6-2.3) mg/dL Total Bilirubin (0.2-1.3) mg/dL AST (17-59) U/L ALT (21-72) U/L Alkaline Phosphatase (38-126) U/L Troponin I 0.027 (0.000-0.034) ng/mL Total Protein (6.3-8.2) g/dL Albumin (3.5-5.0) g/dL Urine Color Yellow Urine Appearance Cloudy (Clear) Urine pH 7.0 (5.0-8.0) Ur Specific [place] 1.017 (1.001-1.035) Urine Protein Trace H (Negative) Urine Glucose (UA) Negative (Negative) Urine Ketones Negative (Negative) Urine Blood Trace H (Negative) Urine Nitrite Positive (Negative) Urine Bilirubin Negative (Negative) Urine Urobilinogen <2.0 (<2.0) mg/dL Ur Leukocyte Esterase Large H (Negative) Urine RBC 10 H (0-5) /hpf Urine WBC >182 H (0-5) /hpf Urine WBC Clumps Many H (None) /hpf Ur Squamous Epith Cells <1 (0-4) /hpf Amorphous Sediment Rare H (None) /hpf Urine Bacteria Many H (None) /hpf Urine Mucus Rare H (None) /hpf Disposition Clinical Impression: Urinary tract infection, Sepsis Disposition: ADMITTED IP TO THIS HOSP Referrals: Syed Caal MD [Primary Care Provider] - 1-2 days Time of Disposition: 15:42
[2019-10-23 14:36] LABS: Basophils % (A) 0 %; Eosinophils % (A) 0 %; HCT 38.7 % (39.0-53.0); HGB 12.7 gm/dL (13.0-17.5); Lymphocytes # (A) 0.9 k/uL (1.0-4.8); Lymphocytes % (A) 4 %; MCH 29.7 pg (25.0-35.0); MCHC 32.9 g/dL (31.0-37.0); MCV 90.5 fL (80.0-100.0); Mean Platelet Volume 6.9; Monocytes # (A) 1.2 k/uL (0-1.0); Monocytes % (A) 5 %; Neutrophils % (A) 90 %; Platelet Count 279 k/uL (150-450); RBC 4.28 m/uL (4.30-5.90); RDW 14.5 % (11.5-15.5); WBC 22.2 k/uL (3.8-10.6)
--- NOTE | 2019-10-23 14:42 | XR ---
EXAMINATION TYPE: XR chest 2V DATE OF EXAM: 10/23/2019 COMPARISON: Chest x-ray June 10, 2019. HISTORY: Weakness. TECHNIQUE: Frontal and lateral views of the chest are obtained. FINDINGS: Background chronic parenchymal change in low lung volumes redemonstrated. There is no no kunz spicious focal air space opacity, pleural effusion, or pneumothorax seen. The cardiac silhouette siz e remains enlarged with atherosclerotic and aneurysmal aortic knob. Right paratracheal soft tissue p rominence is redemonstrated and nonspecific . Cardiac closure device superior portion of heart redemo nstrated. The osseous structures remain demineralized. Old healed malunion fracture right proximal hu merus redemonstrated. IMPRESSION: Low lung volumes and chronic parenchymal changes along with cardiomegaly all redemonstra shae. No acute pulmonary process is evident.
[2019-10-23 14:44] LABS: Amorphous Sediment,Urine Rare /hpf; Appearance,Urine Cloudy (Clear); Bacteria,Urine Many /hpf; Bilirubin,Urine Negative (Negative); Blood,Urine Trace (Negative); Color,Urine Yellow; Glucose,Urine (UA) Negative (Negative); Ketones,Urine Negative (Negative); Leukocyte Esterase,Urine Large (Negative); Mucus,Urine Rare /hpf; Nitrite,Urine Positive (Negative); Protein,Urine Trace (Negative); RBC,Urine 10 /hpf (0-5); Specific Gravity,Urine 1.017 (1.001-1.035); Squamous Epithelial Cell,Urine <1 /hpf (0-4); Urobilinogen,Urine <2.0 mg/dL (<2.0)
[2019-10-23 14:46] LABS: ALT 19 U/L (21-72); AST 39 U/L (17-59); African American GFR (CKD) >90 (>60 ml/min/1.73 sqM); Albumin 3.9 g/dL (3.5-5.0); Alkaline Phosphatase 120 U/L (38-126); Anion Gap 8 mmol/L; Blood Urea Nitrogen 11 mg/dL (9-20); Calcium 9.6 mg/dL (8.4-10.2); Carbon Dioxide 30 mmol/L (22-30); Chloride 100 mmol/L (98-107); Glucose 122 mg/dL (74-99); Magnesium 1.6 mg/dL (1.6-2.3); Non-African American GFR(CKD) 79 (>60 ml/min/1.73 sqM); Potassium 3.1 mmol/L (3.5-5.1); Sodium 138 mmol/L (137-145); Total Protein 6.9 g/dL (6.3-8.2)
[2019-10-23 14:50] LABS: INR 2.1 (<1.2); Partial Thromboplastin Time 35.5 sec (22.0-30.0); Prothrombin Time 20.9 sec (9.0-12.0)
[2019-10-23] MEDS: SODIUM CHLORIDE 0.9% 1,000 ML IV SCH ×2 (17:00→20:27)
[2019-10-23] MEDS: WARFARIN 2.5 MG TAB PO SCH (18:16)
[2019-10-23] MEDS: HYDROCHLOROTHIAZIDE 25 MG TAB PO SCH (18:17)
[2019-10-23] MEDS: ATORVASTATIN 40 MG TAB PO SCH (20:27)
[2019-10-23] MEDS: amLODIPine 5 MG TAB PO SCH (20:27)
[2019-10-23] MEDS: diphenhydrAMINE 25 MG CAP PO SCH (21:09)
[2019-10-23] MEDS: ACETAMINOPHEN TAB 500 MG TAB PO SCH (21:09)
[2019-10-23] MEDS: ALPRAZolam 0.25 MG TAB PO PRN (22:17)
[2019-10-24 08:09] LABS: INR 2.4 (<1.2); Prothrombin Time 23.5 sec (9.0-12.0)
[2019-10-24] MEDS: SERTRALINE 100 MG TAB PO SCH (08:34)
[2019-10-24] MEDS: HYDROCHLOROTHIAZIDE 25 MG TAB PO SCH (08:34)
[2019-10-24] MEDS: POTASSIUM CHLORIDE ER 20 MEQ TAB.ER PO SCH (08:34)
[2019-10-24] MEDS: SODIUM CHLORIDE 0.9% 1,000 ML IV SCH ×3 (08:34→23:51)
[2019-10-24] MEDS: ASPIRIN 81 MG PO SCH (08:34)
[2019-10-24] MEDS: FINASTERIDE 5 MG TAB PO SCH (08:34)
--- NOTE | 2019-10-24 11:57 | P.HPIM ---
History of Present Illness 84-year-old male for the last 2 weeks has had hematuria was on course of antibiotics. Patient became less responsive and brought to the emergency room. Patient was found to have a urinary tract infection with sepsis. Patient is a history of bladder cancer and aortic valve surgery Review of Systems Constitutional: Reports fatigue, Reports weakness Neurological: Reports confusion Past Medical History Past Medical History: Cancer, CVA/TIA Additional Past Medical History / Comment(s): aneurysm, Sepsis from UTI History of Any Multi-Drug Resistant Organisms: MRSA Date of last positivie culture/infection: 07/13/2014 MDRO Source:: Right Eye Past Surgical History: Bladder Surgery, Prostate Surgery Additional Past Surgical History / Comment(s): aortic valve rep. 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 Left hip fx with surgery,. right humerus Fx non sugical- 2007 Past Anesthesia/Blood Transfusion Reactions: No Reported Reaction Past Psychological History: No Psychological Hx Reported Smoking Status: Former smoker Past Alcohol Use History: None Reported Past Drug Use History: None Reported - Past Family History Father Family Medical History: Cancer Additional Family Medical History / Comment(s): lung cancer Mother Family Medical History: Hypertension Additional Family Medical History / Comment(s): osteoporosis Medications and Allergies Home Medications Medication Instructions Recorded Confirmed Type Acetaminophen/Diphenhydramine 2 tab PO HS 06/10/19 10/23/19 History [Tylenol PM 500-25mg] Atorvastatin Calcium [Lipitor] 40 mg PO HS 06/10/19 10/23/19 History Cholecalciferol [Vitamin D3 (25 2,000 unit PO DAILY 06/10/19 10/23/19 History Mcg = 1000 Iu)] Hydrochlorothiazide 25 mg PO MOWEFR 06/10/19 10/23/19 History Hydrochlorothiazide [Hydrodiuril] 12.5 mg PO SUTUTHSA 06/10/19 10/23/19 History Multivitamins, Thera [Multivitamin 1 tab PO DAILY 06/10/19 10/23/19 History (formulary)] Sertraline [Zoloft] 200 mg PO DAILY 06/10/19 10/23/19 History Warfarin [Coumadin] 2.5 mg PO SUMOTUTHFRSA 06/10/19 10/23/19 History Potassium Chloride ER [K-Dur 20] 20 meq PO DAILY 06/30/19 10/23/19 History Warfarin Sodium [Coumadin] 5 mg PO WE 06/30/19 10/23/19 History Aspirin EC [Ecotrin Low Dose] 81 mg PO DAILY 10/23/19 10/23/19 History Finasteride [Proscar] 5 mg PO DAILY 10/23/19 10/23/19 History amLODIPine [Norvasc] 5 mg PO HS 10/23/19 10/23/19 History Allergies Allergy/AdvReac Type Severity Reaction Status Date / Time morphine AdvReac Hallucinati Verified 10/23/19 14:40 ons Physical Exam Vitals: Vital Signs Temp Pulse Pulse Resp BP BP Pulse Ox 10/24/19 07:00 97.6 F 67 17 107/67 95 10/24/19 00:45 97.8 F 66 101/61 94 L 10/23/19 18:56 99.0 F 64 17 108/60 95 10/23/19 18:15 98.8 F 64 17 120/74 94 L 10/23/19 17:47 63 16 138/73 98 10/23/19 16:27 103 H 20 125/81 97 10/23/19 14:46 81 18 130/71 95 10/23/19 13:56 97.7 F 73 18 117/78 93 L Intake and Output 10/23/19 10/24/19 10/24/19 22:59 06:59 14:59 Intake Total 480 235 Balance 480 235 Intake: Oral 480 235 Other: Voiding Method Urinal Incontinent # Voids 1 1 # Bowel Movements 1 Weight 90.718 kg - Constitutional General appearance: mild distress - EENT Eyes: PERRLA Ears: bilateral: normal - Neck Neck: normal ROM - Respiratory Respiratory: bilateral: CTA - Cardiovascular Rhythm: regular Abnormal Heart Sounds: click - Gastrointestinal General gastrointestinal: normal bowel sounds, soft - Integumentary Integumentary: normal - Neurologic Neurologic: CNII-XII intact - Musculoskeletal Musculoskeletal: left sided weakness - Psychiatric Psychiatric: A&O x's 3 Results CBC & Chem 7: 10/23/19 14:10 10/23/19 14:10 Labs: Abnormal Lab Results - Last 24 Hours (Table) 10/23/19 10/23/19 10/23/19 Range/Units 14:10 14:10 14:10 WBC 22.2 H (3.8-10.6) k/uL RBC 4.28 L (4.30-5.90) m/uL Hgb 12.7 L (13.0-17.5) gm/dL Hct 38.7 L (39.0-53.0) % Neutrophils # 20.0 H (1.3-7.7) k/uL Lymphocytes # 0.9 L (1.0-4.8) k/uL Monocytes # 1.2 H (0-1.0) k/uL PT (9.0-12.0) sec INR (<1.2) APTT (22.0-30.0) sec Potassium 3.1 L (3.5-5.1) mmol/L Glucose 122 H (74-99) mg/dL Plasma Lactic Acid Abiel 2.2 H* (0.7-2.0) mmol/L ALT 19 L (21-72) U/L Urine Protein (Negative) Urine Blood (Negative) Ur Leukocyte Esterase (Negative) Urine RBC (0-5) /hpf Urine WBC (0-5) /hpf Urine WBC Clumps (None) /hpf Amorphous Sediment (None) /hpf Urine Bacteria (None) /hpf Urine Mucus (None) /hpf 10/23/19 10/23/19 10/24/19 Range/Units 14:10 14:10 07:37 WBC (3.8-10.6) k/uL RBC (4.30-5.90) m/uL Hgb (13.0-17.5) gm/dL Hct (39.0-53.0) % Neutrophils # (1.3-7.7) k/uL Lymphocytes # (1.0-4.8) k/uL Monocytes # (0-1.0) k/uL PT 20.9 H 23.5 H (9.0-12.0) sec INR 2.1 H 2.4 H (<1.2) APTT 35.5 H (22.0-30.0) sec Potassium (3.5-5.1) mmol/L Glucose (74-99) mg/dL Plasma Lactic Acid Abiel (0.7-2.0) mmol/L ALT (21-72) U/L Urine Protein Trace H (Negative) Urine Blood Trace H (Negative) Ur Leukocyte Esterase Large H (Negative) Urine RBC 10 H (0-5) /hpf Urine WBC >182 H (0-5) /hpf Urine WBC Clumps Many H (None) /hpf Amorphous Sediment Rare H (None) /hpf Urine Bacteria Many H (None) /hpf Urine Mucus Rare H (None) /hpf Microbiology - Last 24 Hours (Table) 10/23/19 14:10 Urine Culture - Preliminary Urine,Voided Chest x-ray: report reviewed Thrombosis Risk Factor Assmnt - Choose All That Apply Each Risk Factor Represents 3 Points: Age 75 years or older Thrombosis Risk Factor Assessment Total Risk Factor Score: 3 Thrombosis Risk Factor Assessment Level: Moderate Risk Assessment and Plan Plan: Assessment Urinary tract infection with sepsis Metabolic encephalopathy secondary to sepsis History of bladder cancer History of CVA with left-sided weakness Aortic valve replacement Plan Patient on Rocephin We'll continue to monitor
[2019-10-24] MEDS ORDERED: WARFARIN 5 MG TAB PO SCH (18:00)
--- NOTE | 2019-10-24 18:59 | P.GSCN ---
History of Present Illness Consult date: 10/24/19 Reason for Consult: Recurrent UTI's History of present illness: The patient is an 84-year-old male admitted through the emergency room yesterday for treatment of sepsis secondary to a urinary tract infection. The history is from a discussion with the patient and his daughter and review of our office records. The patient had been treated for an aerococcus urinae urinary tract infection noted on 10/10/2019 with amoxicillin 500 mg 3 times a day. At that time the patient had gross hematuria. He finished the antibiotic approximately 3 days ago. On 10/21 he was noted to have some weakness and increased irritability but this improved the next day. Yesterday he was more week and developed confusion and urinary incontinence. He had no fever or chills and denied any dysuria or gross hematuria. When seen in the emergency room yesterday his white blood count was 22,000. Lactic acid was 2.2. BUN/creatinine was 11/0.88. Urinalysis from a voided specimen showed over 182 white cells, 10 RBC's many bacteria and was positive for nitrite. The patient was started on ceftriaxone and given IV fluids. He has remained afebrile and is less confused today. The patient has a history of incomplete bladder emptying despite a TURP perform ed in 2012. His postvoid residual on 08/01 was 147 cc. He has a remote history of low-grade stage Ta bladder cancer which was diagnosed in 1996 and has had no recurrence since then. He has no history of urolithiasis. He had a pseudomonas urinary tract infection in 06/2019 while hospitalized in a half-way. Review of Systems - Constitutional Reports fatigue, Denies chills, Denies fever - Cardiovascular Denies shortness of breath - Respiratory Denies cough - Gastrointestinal Denies abdominal pain, Denies change in bowel habits, Denies nausea - Genitourinary Reports as per HPI Past Medical History Past Medical History: Cancer, CVA/TIA Additional Past Medical History / Comment(s): aneurysm, Sepsis from UTI History of Any Multi-Drug Resistant Organisms: MRSA Year Discovered:: 07/13/2014 MDRO Source:: Right Eye Past Surgical History: Bladder Surgery (TURBT 1996), Prostate Surgery (TURP 2012) Additional Past Surgical History / Comment(s): aortic valve rep. 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 Left hip fx with surgery,. right humerus Fx non sugical- 2007 Past Anesthesia/Blood Transfusion Reactions: No Reported Reaction Past Psychological History: No Psychological Hx Reported Smoking Status: Former smoker Past Alcohol Use History: None Reported Past Drug Use History: None Reported - Past Family History Father Family Medical History: Cancer Additional Family Medical History / Comment(s): lung cancer Mother Family Medical History: Hypertension Additional Family Medical History / Comment(s): osteoporosis Medications and Allergies Home Medications Medication Instructions Recorded Confirmed Type Acetaminophen/Diphenhydramine 2 tab PO HS 06/10/19 10/23/19 History [Tylenol PM 500-25mg] Atorvastatin Calcium [Lipitor] 40 mg PO HS 06/10/19 10/23/19 History Cholecalciferol [Vitamin D3 (25 2,000 unit PO DAILY 06/10/19 10/23/19 History Mcg = 1000 Iu)] Hydrochlorothiazide 25 mg PO MOWEFR 06/10/19 10/23/19 History Hydrochlorothiazide [Hydrodiuril] 12.5 mg PO SUTUTHSA 06/10/19 10/23/19 History Multivitamins, Thera [Multivitamin 1 tab PO DAILY 06/10/19 10/23/19 History (formulary)] Sertraline [Zoloft] 200 mg PO DAILY 06/10/19 10/23/19 History Warfarin [Coumadin] 2.5 mg PO SUMOTUTHFRSA 06/10/19 10/23/19 History Potassium Chloride ER [K-Dur 20] 20 meq PO DAILY 06/30/19 10/23/19 History Warfarin Sodium [Coumadin] 5 mg PO WE 06/30/19 10/23/19 History Aspirin EC [Ecotrin Low Dose] 81 mg PO DAILY 10/23/19 10/23/19 History Finasteride [Proscar] 5 mg PO DAILY 10/23/19 10/23/19 History amLODIPine [Norvasc] 5 mg PO HS 10/23/19 10/23/19 History Allergies Allergy/AdvReac Type Severity Reaction Status Date / Time morphine AdvReac Hallucinati Verified 10/23/19 14:40 ons Surgical - Exam Vital Signs Temp Pulse Resp BP Pulse Ox 97.7 F 73 18 117/78 93 L 10/23/19 13:56 10/23/19 13:56 10/23/19 13:56 10/23/19 13:56 10/23/19 13:56 - General well developed, well nourished, no distress - ENT other (Hard of hearing) - Neck no masses, no lymphadectomy - Respiratory normal respiratory effort - Abdomen Abdomen: soft, no organomegaly, no masses - Genitourinary normal penis with no external lesions, other (exdelling catheter in place) Results - Labs 10/23/19 14:10 10/23/19 14:10 Abnormal Lab Results - Last 24 Hours (Table) 10/24/19 Range/Units 07:37 PT 23.5 H (9.0-12.0) sec INR 2.4 H (<1.2) Microbiology - Last 24 Hours (Table) 10/23/19 15:47 Blood Culture - Preliminary Blood No Growth after 24 hours 10/23/19 14:10 Urine Culture - Preliminary Urine,Voided Assessment and Plan Assessment: The patient's confusion and elevated white blood count on admission appears to be related to an acute urinary tract infection. It is unclear whether this is a persistent aerococcus infection or a new infection. Blood culture shows no growth at 24 hours and in view of this it would be reasonable to continue ceftriaxone. A postvoid residual will be checked but I would prefer not to insert a Salcedo catheter unless it is markedly elevated Dr. Langford has followed the patient in the past and will check in with him later this week. (1) Urinary tract infection Current Visit: Yes Status: Acute Code(s): N39.0 - URINARY TRACT INFECTION, SITE NOT SPECIFIED SNOMED Code(s): 56220504
[2019-10-24] MEDS: amLODIPine 5 MG TAB PO SCH (20:41)
[2019-10-24] MEDS: ACETAMINOPHEN TAB 500 MG TAB PO SCH (20:41)
[2019-10-24] MEDS: ATORVASTATIN 40 MG TAB PO SCH (20:41)
[2019-10-24] MEDS: diphenhydrAMINE 25 MG CAP PO SCH (20:41)
[2019-10-24] MEDS: ALPRAZolam 0.25 MG TAB PO PRN (21:46)
[2019-10-25] MEDS: SODIUM CHLORIDE 0.9% 1,000 ML IV SCH ×2 (05:50→13:27)
[2019-10-25] MEDS: SERTRALINE 100 MG TAB PO SCH (08:09)
[2019-10-25] MEDS: ASPIRIN 81 MG PO SCH (08:09)
[2019-10-25] MEDS: POTASSIUM CHLORIDE ER 20 MEQ TAB.ER PO SCH (08:09)
[2019-10-25] MEDS: FINASTERIDE 5 MG TAB PO SCH (08:10)
[2019-10-25 08:38] LABS: Basophils % (A) 0 %; Eosinophils # (A) 0.5 k/uL (0-0.7); Eosinophils % (A) 4 %; HCT 34.7 % (39.0-53.0); HGB 11.5 gm/dL (13.0-17.5); Lymphocytes # (A) 0.8 k/uL (1.0-4.8); Lymphocytes % (A) 7 %; MCH 29.9 pg (25.0-35.0); MCHC 33.1 g/dL (31.0-37.0); MCV 90.2 fL (80.0-100.0); Monocytes # (A) 0.7 k/uL (0-1.0); Monocytes % (A) 6 %; Neutrophils % (A) 82 %; Platelet Count 253 k/uL (150-450); RBC 3.84 m/uL (4.30-5.90); RDW 14.4 % (11.5-15.5); WBC 12.2 k/uL (3.8-10.6)
[2019-10-25 08:50] LABS: ALT 24 U/L (21-72); AST 34 U/L (17-59); African American GFR (CKD) >90 (>60 ml/min/1.73 sqM); Alkaline Phosphatase 90 U/L (38-126); Anion Gap 5 mmol/L; Blood Urea Nitrogen 9 mg/dL (9-20); Carbon Dioxide 29 mmol/L (22-30); Chloride 106 mmol/L (98-107); Glucose 87 mg/dL (74-99); Non-African American GFR(CKD) 84 (>60 ml/min/1.73 sqM); Potassium 2.8 mmol/L (3.5-5.1); Sodium 140 mmol/L (137-145); Total Bilirubin 0.9 mg/dL (0.2-1.3); Total Protein 5.9 g/dL (6.3-8.2)
[2019-10-25 08:52] LABS: INR 2.5 (<1.2); Prothrombin Time 24.1 sec (9.0-12.0)
[2019-10-25] MEDS: POTASSIUM CHLORIDE 10 MEQ in WATER FOR INJECTION 1 100ML.BAG IVPB SCH ×6 (09:53→15:44)
--- NOTE | 2019-10-25 11:38 | P.PN ---
Subjective Progress Note Date: 10/25/19 The patient is in the hospital with urinary tract infection with sepsis. He is on antibiotics. Urine culture is growing a gram-negative letitia. Count is down to 12,000. I suspect the major problem is incomplete bladder emptying. He has had a TURP in the past. Once the oral antibiotic is identified he should be treated. He should probably be treated longer than the routine 7-10 days Objective - Vital Signs Vital signs: Vital Signs Temp 98.1 F 10/25/19 07:31 Pulse 50 L 10/25/19 07:31 Resp 24 10/25/19 07:31 BP 144/63 10/25/19 07:31 Pulse Ox 92 L 10/25/19 07:31 Intake & Output 10/24/19 10/25/19 10/25/19 18:59 06:59 18:59 Intake Total 1325 480 Output Total 800 Balance 1325 -320 Intake: IV 1090 Sodium Chloride 0.9% 1, 1040 000 ml @ 130 mls/hr IV . Q7H42M [facility] Rx#:[id number] cefTRIAXone 1 gm In 50 Sodium Chloride 0.9% 50 ml @ 100 mls/hr IVPB Q24HR [facility] Rx#:[id number] Oral 235 480 Output: Urine 800 Other: Voiding Method Urinal Urinal Incontinent Incontinent # Voids 1 - Labs CBC & Chem 7: 10/25/19 08:06 10/25/19 08:06 Labs: Abnormal Lab Results - Last 24 Hours (Table) 10/25/19 10/25/19 10/25/19 Range/Units 08:06 08:06 08:06 WBC 12.2 H (3.8-10.6) k/uL RBC 3.84 L (4.30-5.90) m/uL Hgb 11.5 L (13.0-17.5) gm/dL Hct 34.7 L (39.0-53.0) % Neutrophils # 10.0 H (1.3-7.7) k/uL Lymphocytes # 0.8 L (1.0-4.8) k/uL PT 24.1 H (9.0-12.0) sec INR 2.5 H (<1.2) Potassium 2.8 L (3.5-5.1) mmol/L Total Protein 5.9 L (6.3-8.2) g/dL Albumin 3.0 L (3.5-5.0) g/dL Microbiology - Last 24 Hours (Table) 10/23/19 14:10 Urine Culture - Preliminary Urine,Voided Gram Neg Bacilli 10/23/19 15:47 Blood Culture - Preliminary Blood No Growth after 24 hours
--- NOTE | 2019-10-25 11:40 | P.PN ---
Subjective Noted x-ray wheeze this morning albuterol ordered. Patient had consultation with urology. Patient awake and alert Objective - Vital Signs Vital signs: Vital Signs Temp 98.1 F 10/25/19 07:31 Pulse 50 L 10/25/19 07:31 Resp 24 10/25/19 07:31 BP 144/63 10/25/19 07:31 Pulse Ox 92 L 10/25/19 07:31 Intake & Output 10/24/19 10/25/19 10/25/19 18:59 06:59 18:59 Intake Total 1325 480 Output Total 800 Balance 1325 -320 Intake: IV 1090 Sodium Chloride 0.9% 1, 1040 000 ml @ 130 mls/hr IV . Q7H42M [facility] Rx#:[id number] cefTRIAXone 1 gm In 50 Sodium Chloride 0.9% 50 ml @ 100 mls/hr IVPB Q24HR [facility] Rx#:[id number] Oral 235 480 Output: Urine 800 Other: Voiding Method Urinal Urinal Incontinent Incontinent # Voids 1 - Constitutional General appearance: Present: mild distress - EENT Eyes: Present: PERRLA Ears: bilateral: normal - Neck Neck: Present: normal ROM - Respiratory Respiratory: bilateral: wheezing - Cardiovascular Rhythm: regular - Gastrointestinal General gastrointestinal: Present: soft - Genitourinary Genitourinary Comment(s): Yoanna catheter - Integumentary Integumentary: Present: normal - Neurologic Neurologic: Present: CNII-XII intact - Musculoskeletal Musculoskeletal: Present: left sided weakness - Psychiatric Psychiatric: Present: A&O x's 3, appropriate affect - Labs CBC & Chem 7: 10/25/19 08:06 10/25/19 08:06 Labs: Abnormal Lab Results - Last 24 Hours (Table) 10/25/19 10/25/19 10/25/19 Range/Units 08:06 08:06 08:06 WBC 12.2 H (3.8-10.6) k/uL RBC 3.84 L (4.30-5.90) m/uL Hgb 11.5 L (13.0-17.5) gm/dL Hct 34.7 L (39.0-53.0) % Neutrophils # 10.0 H (1.3-7.7) k/uL Lymphocytes # 0.8 L (1.0-4.8) k/uL PT 24.1 H (9.0-12.0) sec INR 2.5 H (<1.2) Potassium 2.8 L (3.5-5.1) mmol/L Total Protein 5.9 L (6.3-8.2) g/dL Albumin 3.0 L (3.5-5.0) g/dL Microbiology - Last 24 Hours (Table) 10/23/19 14:10 Urine Culture - Preliminary Urine,Voided Gram Neg Bacilli 10/23/19 15:47 Blood Culture - Preliminary Blood No Growth after 24 hours Assessment and Plan Plan: Assessment Urinary tract infection with sepsis Metabolic encephalopathy secondary to sepsis History of bladder cancer History of CVA with left-sided weakness Aortic valve surgery Hematuria Bronchospasm Hypokalemia potassium replacement protocol initiated Plan Continue consultation with urology Patient on Rocephin
--- NOTE | 2019-10-25 11:41 | P.PN ---
Progress Note - Text Patient being evaluated for placement in rehab at [facility]
[2019-10-25] MEDS: WARFARIN 2.5 MG TAB PO SCH (18:00)
[2019-10-25] MEDS: HYDROCHLOROTHIAZIDE 25 MG TAB PO SCH (18:01)
[2019-10-25] MEDS: ALBUTEROL NEBULIZED 2.5 MG/3 ML INHALATION PRN (20:14)
[2019-10-25] MEDS ORDERED: POTASSIUM CHLORIDE ER 20 MEQ TAB.ER PO STA (21:20)
[2019-10-25] MEDS: amLODIPine 5 MG TAB PO SCH (21:29)
[2019-10-25] MEDS: ACETAMINOPHEN TAB 500 MG TAB PO SCH (21:29)
[2019-10-25] MEDS: ATORVASTATIN 40 MG TAB PO SCH (21:30)
[2019-10-25] MEDS: diphenhydrAMINE 25 MG CAP PO SCH (21:30)
[2019-10-25] MEDS: ALPRAZolam 0.25 MG TAB PO PRN (21:30)
[2019-10-25] MEDS ORDERED: HALOPERIDOL LACTATE 5 MG/ML 1 ML VIAL IM ONE (23:18)
[2019-10-26] MEDS: ALPRAZolam 0.25 MG TAB PO PRN ×2 (05:15→22:03)
[2019-10-26] MEDS: SODIUM CHLORIDE 0.9% 1,000 ML IV SCH (06:10)
[2019-10-26] MEDS: ALBUTEROL NEBULIZED 2.5 MG/3 ML INHALATION PRN ×2 (07:29→11:17)
[2019-10-26 07:36] LABS: INR 2.6 (<1.2); Prothrombin Time 24.8 sec (9.0-12.0)
[2019-10-26] MEDS: ASPIRIN 81 MG PO SCH (09:42)
[2019-10-26] MEDS: SERTRALINE 100 MG TAB PO SCH (09:42)
[2019-10-26] MEDS: HYDROCHLOROTHIAZIDE 25 MG TAB PO SCH (09:42)
[2019-10-26] MEDS: POTASSIUM CHLORIDE ER 20 MEQ TAB.ER PO SCH (09:42)
[2019-10-26] MEDS: FINASTERIDE 5 MG TAB PO SCH (09:42)
--- NOTE | 2019-10-26 13:21 | P.PN ---
Subjective Progress Note Date: 10/26/19 the urine c&s grew e coli From a urological standpoint he can be placed on an oral ab for three weeks and d/cd when medically ready. Objective - Vital Signs Vital signs: Vital Signs Temp 98.3 F 10/26/19 07:08 Pulse 77 10/26/19 11:30 Resp 16 10/26/19 11:30 BP 148/71 10/26/19 07:08 Pulse Ox 93 L 10/26/19 07:08 Intake & Output 10/25/19 10/26/19 10/26/19 18:59 06:59 18:59 Intake Total 1050 Output Total 1900 Balance 1050 -1900 Intake: IV 1050 Potassium Chloride 10 meq 600 In Water For Injection 1 100ml.bag @ 100 mls/hr IVPB Q1HR [facility] Rx#: [id number] Sodium Chloride 0.9% 1, 400 000 ml @ 50 mls/hr IV . Q20H [facility] Rx#:[id number] cefTRIAXone 1 gm In 50 Sodium Chloride 0.9% 50 ml @ 100 mls/hr IVPB Q24HR [facility] Rx#:[id number] Output: Urine 1900 Male - External 1900 Other: Voiding Method Incontinent - Labs CBC & Chem 7: 10/25/19 08:06 10/26/19 07:10 Labs: Abnormal Lab Results - Last 24 Hours (Table) 10/25/19 10/26/19 10/26/19 Range/Units 20:21 07:10 07:10 PT 24.8 H (9.0-12.0) sec INR 2.6 H (<1.2) Potassium 3.2 L 3.4 L (3.5-5.1) mmol/L Microbiology - Last 24 Hours (Table) 10/23/19 15:47 Blood Culture - Preliminary Blood No Growth after 48 hours 10/23/19 14:10 Urine Culture - Final Urine,Voided Escherichia coli
--- NOTE | 2019-10-26 15:20 | PN ---
PROGRESS NOTE I am covering for Dr. Syed Caal. DATE OF SERVICE: 10/26/2019 This 84-year-old gentleman who was admitted with change in mental status and possible UTI with sepsis is being closely monitored at this time. The patient's white count is still elevated at 12.2. INR is being monitored. The current cultures are showing E coli which is rather polysensitive. Currently patient is on IV Rocephin. The E coli remains sensitive to ceftriaxone. Past medical history reviewed. Review of systems could not be taken; the patient is currently confused. CURRENT MEDICATIONS: Reviewed. They include: 1. Tylenol at bedtime. 2. Ventolin. 3. Xanax 0.25 daily. 4. Norvasc 5 mg at bedtime. 5. Aspirin. 6. Lipitor. 7. Rocephin 1 gram. 8. Benadryl. 9. Proscar. 10.HydroDIURIL. 11.Zoloft. 12.Coumadin 2.5 mg and 5 mg. PHYSICAL EXAMINATION: Patient is conscious, confused, oriented x2. Pulse is 80, blood pressure 148/71, respiration 22, temperature 98.3, pulse ox 93% on 2 L. HEENT: Conjunctivae normal. NECK: No jugular venous distention. CARDIOVASCULAR SYSTEM: S1, S2 muffled. RESPIRATORY SYSTEM: Breath sounds diminished at the bases. Scattered rhonchi and crackles. ABDOMEN: Soft, obese, non-tender. LEGS: No edema. No swelling. NERVOUS SYSTEM: No focal deficit. LABS: WBC 12.2, hemoglobin 11.5. INR 2.5. ASSESSMENT: 1. Acute urinary tract infection with sepsis with Escherichia coli. 2. Change in mental status, metabolic encephalopathy, acute on chronic, secondary to sepsis. 3. History of bladder cancer. 4. History of cerebrovascular accident with left-sided weakness. 5. Aortic valve surgery history. 6. Hematuria. 7. History of bronchospasm. RECOMMENDATIONS AND DISCUSSION: I recommend to continue current medications, continue with the monitoring, symptomatic treatment. Otherwise, currently patient is on Rocephin. I recommend bronchodilators. PT/OT evaluation. Monitor PT and INR closely. C difficile has been checked. The patient also complains of some diarrhea. Otherwise, C difficile is negative. Imodium may be used. Otherwise, continue to monitor. PT/OT evaluation, possible ECF rehab. Prognosis guarded. Further recommendations to follow. MMODL / IJN: [id number] /
[2019-10-26] MEDS: WARFARIN 2.5 MG TAB PO SCH (17:36)
--- NOTE | 2019-10-26 19:54 | XR ---
EXAMINATION TYPE: XR chest 2V DATE OF EXAM: 10/26/2019 COMPARISON: October 23, 2019 HISTORY: Wheezing TECHNIQUE: Frontal and lateral views of the chest are obtained. FINDINGS: There is some blunting of the costophrenic angles. There are sternal wires and cardiac michell ve surgery. Thoracic aorta is atheromatous. There is mild thickening of the major fissures. IMPRESSION: There are new small pleural effusions compared to last exam. Thoracic aortic aneurysm. T here is increased density at the aortic arch compared to last exam. No obvious heart failure. Mediast inal widening increased compared to last exam. Follow-up recommended. CT scan would be helpful for fu rther evaluation if clinically indicated. Aortic dissection is possible.
[2019-10-26] MEDS: ACETAMINOPHEN TAB 500 MG TAB PO SCH (21:26)
[2019-10-26] MEDS: amLODIPine 5 MG TAB PO SCH (21:27)
[2019-10-26] MEDS: ATORVASTATIN 40 MG TAB PO SCH (21:27)
[2019-10-26] MEDS: diphenhydrAMINE 25 MG CAP PO SCH (21:32)
[2019-10-27] MEDS: SODIUM CHLORIDE 0.9% 1,000 ML IV SCH (05:46)
[2019-10-27] MEDS: ALBUTEROL NEBULIZED 2.5 MG/3 ML INHALATION PRN (07:50)
[2019-10-27 07:57] LABS: INR 2.9 (<1.2)
[2019-10-27] MEDS: SERTRALINE 100 MG TAB PO SCH (08:00)
[2019-10-27] MEDS: POTASSIUM CHLORIDE ER 20 MEQ TAB.ER PO SCH (08:00)
[2019-10-27] MEDS: ASPIRIN 81 MG PO SCH (08:00)
[2019-10-27] MEDS: predniSONE 20 MG TAB PO SCH (08:00)
--- NOTE | 2019-10-27 09:26 | P.GSCN ---
History of Present Illness Consult date: 10/27/19 Reason for Consult: Change in aortic aneurysm Requesting physician: Nicole Masters History of present illness: This is an 84-year-old debilitated gentleman who follows on an outpatient basis with Dr. Syed Caal. He has a previous medical history of hypertension, CVA with left-sided weakness, chronic Coumadin use for anticoagulation, bladder cancer with TURP, aortic valve replacement, and previous tobacco dependence. He was being treated on an outpatient basis for urinary tract infection and hematuria with amoxicillin per his urologist. He did finish his course of antibiotics and was slightly better, however on 10/23/2019 his family reported he was increasingly weak, as well as confused. He was brought to [facility] emergency room via EMS. He had a white blood cell count of 22.2, urinalysis with large leukocyte esterase, greater than 182 WBCs, many bacteria, and positive nitrates. Lactic acid was elevated at 2.2. Urine culture was obtained, and the patient was admitted for urosepsis with initiation of IV antibiotics and consultation placed to urology. Urine cultured did grow E. coli and urology's recommendation is for oral antibiotics for 3 weeks. Yesterday a 2 view chest x-ray was completed secondary to wheezing, and per the radiologist read there is increased density at the aortic arch and mediastinal widening compared to the previous x-ray. No CT scans of the chest have been completed on this patient at any time at this facility. Due to the x-ray findings Dr. Apple from cardiothoracic surgery was consulted for recommendations. Review of Systems Review of systems was completed and is negative except as noted. - Constitutional Reports weakness - Cardiovascular Cardiovascular Comment(s): Denies any chest or back pain - Respiratory Reports cough - Genitourinary Reports incontinence, Reports urinary frequency - Musculoskeletal Musculoskeleta Comment(s): Left-sided weakness post stroke Past Medical History Past Medical History: Cancer, CVA/TIA Additional Past Medical History / Comment(s): ? aneurysm, Sepsis from UTI History of Any Multi-Drug Resistant Organisms: MRSA Year Discovered:: 07/13/2014 MDRO Source:: Right Eye Past Surgical History: Bladder Surgery (TURBT 1996), Prostate Surgery (TURP 2012) Additional Past Surgical History / Comment(s): aortic valve rep. 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 Left hip fx with surgery,. right humerus Fx non sugical- 2008 Past Anesthesia/Blood Transfusion Reactions: No Reported Reaction Past Psychological History: No Psychological Hx Reported Smoking Status: Former smoker Past Alcohol Use History: None Reported Past Drug Use History: None Reported - Past Family History Father Family Medical History: Cancer Additional Family Medical History / Comment(s): lung cancer Mother Family Medical History: Hypertension Additional Family Medical History / Comment(s): osteoporosis Medications and Allergies Home Medications Medication Instructions Recorded Confirmed Type Acetaminophen/Diphenhydramine 2 tab PO HS 06/10/19 10/23/19 History [Tylenol PM 500-25mg] Atorvastatin Calcium [Lipitor] 40 mg PO HS 06/10/19 10/23/19 History Cholecalciferol [Vitamin D3 (25 2,000 unit PO DAILY 06/10/19 10/23/19 History Mcg = 1000 Iu)] Hydrochlorothiazide 25 mg PO MOWEFR 06/10/19 10/23/19 History Hydrochlorothiazide [Hydrodiuril] 12.5 mg PO SUTUTHSA 06/10/19 10/23/19 History Multivitamins, Thera [Multivitamin 1 tab PO DAILY 06/10/19 10/23/19 History (formulary)] Sertraline [Zoloft] 200 mg PO DAILY 06/10/19 10/23/19 History Warfarin [Coumadin] 2.5 mg PO SUMOTUTHFRSA 06/10/19 10/23/19 History Potassium Chloride ER [K-Dur 20] 20 meq PO DAILY 06/30/19 10/23/19 History Warfarin Sodium [Coumadin] 5 mg PO WE 06/30/19 10/23/19 History Aspirin EC [Ecotrin Low Dose] 81 mg PO DAILY 10/23/19 10/23/19 History Finasteride [Proscar] 5 mg PO DAILY 10/23/19 10/23/19 History amLODIPine [Norvasc] 5 mg PO HS 10/23/19 10/23/19 History Allergies Allergy/AdvReac Type Severity Reaction Status Date / Time morphine AdvReac Hallucinati Verified 10/23/19 14:40 ons Surgical - Exam Vital Signs Temp Pulse Resp BP Pulse Ox 97.7 F 73 18 117/78 93 L 10/23/19 13:56 10/23/19 13:56 10/23/19 13:56 10/23/19 13:56 10/23/19 13:56 - General well developed, well nourished, no distress, no pain, chronically ill - Eyes normal ocular movement - ENT decreased hearing - Neck no masses, no bruits, trachea midline - Respiratory Lungs sounds diminished bilaterally with expiratory wheezes present. Respirations even, nonlabored. Currently on 2 L nasal cannula with oxygen saturation 95%. No chest wall deformities, no clubbing or cyanosis. - Cardiovascular S1, S2 present. Regular rate and rhythm. Sinus rhythm on EKG. Palpable peripheral pulses bilaterally. No edema present. No calf pain or tenderness noted. - Abdomen Abdomen: soft, non tender, bowel sounds - Genitourinary Deferred - Rectum Deferred - Integumentary no rash, no growths - Neurologic Patient is alert, hard of hearing, not the best historian memory loss - Musculoskeletal Left-sided weakness present - Psychiatric oriented to person, oriented to place Results - Labs 10/25/19 08:06 10/26/19 07:10 Abnormal Lab Results - Last 24 Hours (Table) 10/27/19 Range/Units 07:00 PT 28.0 H (9.0-12.0) sec INR 2.9 H (<1.2) Microbiology - Last 24 Hours (Table) 10/23/19 15:47 Blood Culture - Preliminary Blood No Growth after 72 hours - Imaging Chest x-ray: report reviewed, image reviewed EKG: image reviewed Assessment and Plan Assessment: 1. Widened mediastinum on chest x-ray, questionable aortic aneurysm 2. E. coli urosepsis 3. History of hypertension 4. History of CVA with left-sided weakness 5. Chronic Coumadin use 6. History of bladder cancer status post TURP 7. History of aortic valve replacement 8. Previous tobacco dependence Plan: The patient was seen and examined at the bedside. Chart/diagnostics were reviewed. The case was discussed in detail with Dr. Roland who is on-call this weekend. The patient was not the best historian. There does not appear to be any evidence in the chart of history of aortic aneurysm. There are no CT scans of the chest available at any time from this institution. In order to diagnose aortic aneurysm a CT of the chest would need to be completed, however we would not recommend pursuing this diagnosis in this 84-year-old frail gentleman who denies any chest or back pain, and currently has a NO CODE STATUS. We would recommend good blood pressure control and monitoring of symptoms. Continue medical management per primary care, urology. May discharge to rehab from our standpoint with no further cardiothoracic surgery workup. Thank you Dr. Masters for this consult. Please call us with any questions. Time with Patient: Greater than 30
[2019-10-27 13:09] LABS: Basophils % (A) 0 %; Eosinophils # (A) 0.1 k/uL (0-0.7); Eosinophils % (A) 1 %; HCT 39.7 % (39.0-53.0); Lymphocytes # (A) 0.6 k/uL (1.0-4.8); Lymphocytes % (A) 8 %; MCH 30.1 pg (25.0-35.0); MCHC 32.7 g/dL (31.0-37.0); MCV 92.2 fL (80.0-100.0); Mean Platelet Volume 6.6; Monocytes # (A) 0.2 k/uL (0-1.0); Monocytes % (A) 2 %; Neutrophils # (A) 6.8 k/uL (1.3-7.7); Neutrophils % (A) 87 %; Platelet Count 298 k/uL (150-450); RBC 4.31 m/uL (4.30-5.90); RDW 14.6 % (11.5-15.5); WBC 7.8 k/uL (3.8-10.6)
[2019-10-27 13:39] LABS: African American GFR (CKD) >90 (>60 ml/min/1.73 sqM); Anion Gap 8 mmol/L; Blood Urea Nitrogen 9 mg/dL (9-20); Calcium 10.1 mg/dL (8.4-10.2); Carbon Dioxide 29 mmol/L (22-30); Chloride 104 mmol/L (98-107); Glucose 137 mg/dL (74-99); Non-African American GFR(CKD) 80 (>60 ml/min/1.73 sqM); Potassium 3.7 mmol/L (3.5-5.1); Sodium 141 mmol/L (137-145)
[2019-10-27] MEDS: WARFARIN 2.5 MG TAB PO SCH (17:37)
[2019-10-27] MEDS: HYDROCHLOROTHIAZIDE 25 MG TAB PO SCH (17:38)
[2019-10-27] MEDS: ALPRAZolam 0.25 MG TAB PO PRN (19:59)
[2019-10-27] MEDS: diphenhydrAMINE 25 MG CAP PO SCH (19:59)
[2019-10-27] MEDS: ACETAMINOPHEN TAB 500 MG TAB PO SCH (19:59)
[2019-10-27] MEDS: ATORVASTATIN 40 MG TAB PO SCH (19:59)
[2019-10-27] MEDS: amLODIPine 5 MG TAB PO SCH (19:59)
--- NOTE | 2019-10-27 21:44 | PN ---
PROGRESS NOTE DATE OF SERVICE: 10/27/2019 This 84-year-old gentleman who was admitted with acute UTI also had change in mental status. Patient being closely monitored. The patient is being evaluated for PT/OT evaluation and possible ECF rehab also. The patient is also seen by surgery today for change in the aortic aneurysm and the concerns are raised because of the chest x-ray findings but Dr. Roland recommended no further evaluation because of 84-year-old person who the patient is NO CODE and currently asymptomatic as well as the aortic aneurysm is concerned per Cardiothoracic surgery team. PAST MEDICAL HISTORY: Reviewed. REVIEW OF SYSTEMS: Cardiovascular: No angina or palpitations. Respiration as mentioned earlier. GI: As mentioned earlier. : As mentioned earlier. CENTRAL NERVOUS SYSTEM: No numbness or weakness. CURRENT MEDICATIONS: Reviewed and include: 1. Tylenol 1000 mg q.h.s. 2. Ventolin p.r.n. 3. Xanax 0.25 b.i.d. 4. Norvasc. 5. Aspirin. 6. Lipitor. 7. Rocephin. 8. Proscar. 9. Hydrodiuril. 10.K-Dur. 11.Zoloft. 12.Coumadin. Doses are reviewed. PHYSICAL EXAM: Patient is alert and oriented times three. Pulse is 62, blood pressure 147/76, respiration 18, temperature 97.8, pulse ox 94% on room air. HEENT is conjunctivae normal. NECK: No JVD. CARDIOVASCULAR: S1, S2 muffled. RESPIRATIONS: Breath sounds diminished in the bases. A few scattered rhonchi and crackles. ABDOMEN: Soft, nontender. LEGS are no edema. No swelling. CENTRAL NERVOUS SYSTEM: Diffusely weak. LAB: Investigations at this time: WBC 7.2, hemoglobin 13, INR is 2.9. Potassium is improved to 3.7 after 2.8 yesterday. ASSESSMENT: 1. Acute urinary tract infection with sepsis with E coli present on admission. 2. Change in mental status, metabolic encephalopathy, acute on chronic secondary to sepsis. 3. Severe hypokalemia. 4. Concerns of aortic aneurysm expansion, thoracic. 5. History of bladder cancer. 6. History of cerebrovascular accident with left-sided weakness. 7. History of aortic valve surgery. 8. Gait dysfunction. 9. Hematuria. 10.History of bronchospasm. 11.NO CODE. NO CPR. NO VENT. 12.Increased WBC improved. 13.Anemia. RECOMMENDATIONS AND DISCUSSION: In this 84-year-old gentleman who presented with multiple medical problems. At this time, I recommend to continue the current medications. Continue with antibiotics. Otherwise as mentioned earlier, the most recent chest x-ray showed concerns of expanding aortic aneurysm and small pleural effusions also noted but as per Dr. Roland's recommendations, we will continue to monitor. We will continue to workup the patient for possible PT/OT evaluation and prognosis extremely guarded because of multiple complex medical issues. Further recommendations to follow. Discussed with the family at length. Otherwise, continue the rest of the medications as well. Taper the steroids. Prognosis extremely guarded because of multiple complex medical issues. Further recommendations to follow. MMODL / IJN: [id number] /
[2019-10-28 07:13] LABS: Basophils % (A) 0 %; Eosinophils # (A) 0.1 k/uL (0-0.7); Eosinophils % (A) 1 %; HCT 32.6 % (39.0-53.0); HGB 10.9 gm/dL (13.0-17.5); Lymphocytes # (A) 0.9 k/uL (1.0-4.8); Lymphocytes % (A) 10 %; MCH 30.5 pg (25.0-35.0); MCHC 33.6 g/dL (31.0-37.0); MCV 90.8 fL (80.0-100.0); Mean Platelet Volume 7.6; Monocytes # (A) 0.6 k/uL (0-1.0); Monocytes % (A) 7 %; Neutrophils # (A) 7.1 k/uL (1.3-7.7); Neutrophils % (A) 80 %; Platelet Count 298 k/uL (150-450); RBC 3.59 m/uL (4.30-5.90); RDW 14.3 % (11.5-15.5); WBC 8.9 k/uL (3.8-10.6)
[2019-10-28 07:25] LABS: INR 3.2 (<1.2)
[2019-10-28] MEDS: ALBUTEROL NEBULIZED 2.5 MG/3 ML INHALATION PRN ×2 (07:57→11:43)
[2019-10-28 08:01] LABS: African American GFR (CKD) >90 (>60 ml/min/1.73 sqM); Anion Gap 4 mmol/L; Blood Urea Nitrogen 11 mg/dL (9-20); Calcium 8.6 mg/dL (8.4-10.2); Carbon Dioxide 26 mmol/L (22-30); Chloride 111 mmol/L (98-107); Glucose 84 mg/dL (74-99); Non-African American GFR(CKD) 88 (>60 ml/min/1.73 sqM); Sodium 141 mmol/L (137-145)
[2019-10-28] MEDS ORDERED: Potassium Replacement Protocol 1 EACH MISC MISCELLANE PRN (09:12)
[2019-10-28] MEDS: POTASSIUM CHLORIDE 10 MEQ in WATER FOR INJECTION 1 100ML.BAG IVPB SCH ×3 (10:58→14:48)
[2019-10-28] MEDS: predniSONE 20 MG TAB PO SCH (11:03)
[2019-10-28] MEDS: POTASSIUM CHLORIDE ER 20 MEQ TAB.ER PO SCH (11:03)
[2019-10-28] MEDS: ASPIRIN 81 MG PO SCH (11:03)
[2019-10-28] MEDS: FINASTERIDE 5 MG TAB PO SCH (11:03)
[2019-10-28] MEDS: SERTRALINE 100 MG TAB PO SCH (11:03)
[2019-10-28] MEDS: HYDROCHLOROTHIAZIDE 25 MG TAB PO SCH (16:20)
[2019-10-28] MEDS ORDERED: WARFARIN 0.5 MG TAB PO ONE (18:00)
--- NOTE | 2019-10-28 19:43 | PN ---
PROGRESS NOTE DATE OF SERVICE: 10/28/2019 This 84-year-old gentleman who was admitted with acute UTI and sepsis is being closely monitored. PT, OT is evaluating the patient for possible ECF rehab. No chest pain. No palpitations. No fever. Dr. Roland has seen the patient for concerns of aortic aneurysm, but conservative line of management is recommended. No chest pain. No palpitations. No fever. No shortness of breath. EXAM: Alert and oriented x2. Pulse 64, blood pressure 184/78, respiration 18, temperature 98.2, pulse ox 97% on room air. HEENT: Conjunctivae normal. Oral mucosa moist. NECK: No jugular venous distention. No lymph node enlargement. CARDIOVASCULAR: S1, S2. RESPIRATORY: Diminished breath sounds at the bases. A few scattered rhonchi. ABDOMEN: Soft, nontender. NERVOUS SYSTEM: No focal deficits. LABS: WBC 8.2, hemoglobin 10.9. INR is 3.2. Potassium is 3. ASSESSMENT: 1. Acute urinary tract infection with sepsis with E coli present on admission. 2. Change in mental status, metabolic encephalopathy, acute on chronic secondary to sepsis. 3. Severe hypokalemia. 4. Concerns for aortic aneurysm expansion thoracic from the chest x-ray. 5. History of bladder cancer. 6. History of cerebrovascular accident with left-sided weakness. 7. History of aortic valve surgery. 8. Gait dysfunction. 9. Hematuria. 10.History of bronchospasm. 11.Increased WBC, improving. 12.No CODE, NO CPR. 13.Anemia. RECOMMENDATIONS AND DISCUSSION: Recommend to continue current medications, continue to monitor and symptomatic treatment. Otherwise, PT/OT evaluation. Continue the antibiotics. The patient is not a candidate for any invasive testing or evaluation per Dr. Rolnad. Otherwise, we will continue with conservative line of management. Hold Coumadin today. Guarded prognosis. Further recommendations to follow. Coumadin dosing per pharmacy. Repeat labs in the morning. MMODL / IJN: [id number] /
[2019-10-28] MEDS: diphenhydrAMINE 25 MG CAP PO SCH (20:03)
[2019-10-28] MEDS: amLODIPine 5 MG TAB PO SCH (20:15)
[2019-10-28] MEDS: ATORVASTATIN 40 MG TAB PO SCH (20:15)
[2019-10-28] MEDS: ACETAMINOPHEN TAB 500 MG TAB PO SCH (20:15)
[2019-10-28] MEDS: ALPRAZolam 0.25 MG TAB PO PRN (20:15)
[2019-10-29 07:05] LABS: Basophils % (A) 0 %; Eosinophils # (A) 0.1 k/uL (0-0.7); Eosinophils % (A) 1 %; HGB 10.8 gm/dL (13.0-17.5); Lymphocytes % (A) 10 %; MCH 29.8 pg (25.0-35.0); MCHC 32.8 g/dL (31.0-37.0); MCV 90.8 fL (80.0-100.0); Mean Platelet Volume 6.5; Monocytes # (A) 0.6 k/uL (0-1.0); Monocytes % (A) 6 %; Neutrophils # (A) 8.6 k/uL (1.3-7.7); Neutrophils % (A) 82 %; Platelet Count 334 k/uL (150-450); RBC 3.63 m/uL (4.30-5.90); RDW 14.5 % (11.5-15.5); WBC 10.5 k/uL (3.8-10.6)
[2019-10-29 07:12] LABS: African American GFR (CKD) >90 (>60 ml/min/1.73 sqM); Anion Gap 5 mmol/L; Blood Urea Nitrogen 10 mg/dL (9-20); Calcium 9.3 mg/dL (8.4-10.2); Carbon Dioxide 31 mmol/L (22-30); Chloride 106 mmol/L (98-107); Glucose 90 mg/dL (74-99); Non-African American GFR(CKD) 85 (>60 ml/min/1.73 sqM); Potassium 3.1 mmol/L (3.5-5.1); Sodium 142 mmol/L (137-145)
[2019-10-29] MEDS: predniSONE 20 MG TAB PO SCH (08:59)
[2019-10-29] MEDS: POTASSIUM CHLORIDE ER 20 MEQ TAB.ER PO SCH ×3 (09:00→13:40)
[2019-10-29] MEDS: ASPIRIN 81 MG PO SCH (09:00)
[2019-10-29] MEDS: SERTRALINE 100 MG TAB PO SCH (09:00)
[2019-10-29] MEDS: FINASTERIDE 5 MG TAB PO SCH (09:00)
[2019-10-29] MEDS: HYDROCHLOROTHIAZIDE 25 MG TAB PO SCH (09:01)
--- NOTE | 2019-10-29 10:59 | CDI ---
Documentation Clarification Form Date: 10/29/2019 10:54:00 AM From: Noemi Snell RN, CCDS Admit Date: 10/24/2019 10:49:00 PM Patient Name: Graeme Verde Visit Number: [id number] ATTENTION: The Clinical Documentation Specialists (CDI) and [facility] Coding Staff appreciate your assistance in clarifying documentation. Please respond to the clarification below the line at the bottom and electronically sign. The CDI & [facility] Coding staff will review the response and follow-up if needed. Please note: Queries are made part of the Legal Health Record. If you have any questions, please contact the author of this message via ITS. Dr. Syed Caal A diagnosis of anemia lacks specificity to accurately reflect your patients severity of condition and clarification is needed. History/Risk Factors: CVA with weakness on left, Cancer, Sepsis with UTI Clinical indicators: 10/28 Attending Progress Note: " anemia" Hemoglobin: 13/10.9/10.8 Hematocrit: 39.7/32.6/33 Treatment: monitoring labs IVF Bolus Coumadin dosing In order to capture the severity of condition, please clarify the type of anemia and etiology if known: Acute blood loss anemia Acute on chronic blood loss anemia Chronic blood loss anemia Iron deficiency anemia Drug induced anemia Nutritional anemia Anemia of chronic disease Unable to determine Other, please specify (Last Revision: August 2017) MTDD
[2019-10-29 11:55] LABS: INR 2.5 (<1.2); Prothrombin Time 24.4 sec (9.0-12.0)
[2019-10-29 14:19] VITALS: BP 159/80; PULSE 67; RESP 17; TEMP 97.3
[2019-10-29] MEDS ORDERED: WARFARIN 2.5 MG TAB PO ONE (18:00)
--- NOTE | 2019-10-30 11:49 | P.DS ---
Providers Date of admission: 10/24/19 22:49 Expected date of discharge: 10/29/19 Attending physician: Syed Caal Consults: 10/24/19 12:44 Consult Physician Urgent Consulting Provider: Chito Langford Consult Reason/Comments: recurrent uti Do you want consulting provider notified?: Yes 10/26/19 20:15 Consult Physician Routine Consulting Provider: Larry Apple Consult Reason/Comments: change in aneurism Do you want consulting provider notified?: Yes, Notify in am Primary care physician: Syed Caal Hospital Course: 84-year-old male was admitted through the emergency room with complaints of mental status changes urinary tract infection with sepsis positive E. coli. Patient was seen by urology recommended 3 weeks of antibiotics post discharge. Patient has history of bladder cancer. Patient was stabilized and cleared for discharge. Suspected aortic aneurysm evaluated and cleared by thoracic surgeon Assessment Anemia chronic disease Metabolic encephalopathy secondary to the urinary tract infection with sepsis E. coli History of bladder cancer History of CVA/TIA with left-sided weakness Mechanical heart valve aortic Bronchospasms Plan Up with family physician Dr. Syed Caal and urology Discharge home to family Plan - Discharge Summary Discharge Rx Participant: No New Discharge Prescriptions: New Amoxicillin/Potassium Clav [Augmentin 875-125 Tablet] 1 tab PO Q12HR #42 tab predniSONE 40 mg PO DAILY #40 tab Continue Warfarin [Coumadin] 2.5 mg PO SUMOTUTHFRSA Acetaminophen/Diphenhydramine [Tylenol PM 500-25mg] 2 tab PO HS Hydrochlorothiazide [Hydrodiuril] 12.5 mg PO SUTUTHSA Hydrochlorothiazide 25 mg PO MOWEFR Sertraline [Zoloft] 200 mg PO DAILY Multivitamins, Thera [Multivitamin (formulary)] 1 tab PO DAILY Cholecalciferol [Vitamin D3 (25 Mcg = 1000 Iu)] 2,000 unit PO DAILY Atorvastatin Calcium [Lipitor] 40 mg PO HS Potassium Chloride ER [K-Dur 20] 20 meq PO DAILY Warfarin Sodium [Coumadin] 5 mg PO WE Aspirin EC [Ecotrin Low Dose] 81 mg PO DAILY amLODIPine [Norvasc] 5 mg PO HS Finasteride [Proscar] 5 mg PO DAILY Discharge Medication List Acetaminophen/Diphenhydramine [Tylenol PM 500-25mg] 2 tab PO HS 06/10/19 [History] Atorvastatin Calcium [Lipitor] 40 mg PO HS 06/10/19 [History] Cholecalciferol [Vitamin D3 (25 Mcg = 1000 Iu)] 2,000 unit PO DAILY 06/10/19 [History] Hydrochlorothiazide 25 mg PO MOWEFR 06/10/19 [History] Hydrochlorothiazide [Hydrodiuril] 12.5 mg PO SUTUTHSA 06/10/19 [History] Multivitamins, Thera [Multivitamin (formulary)] 1 tab PO DAILY 06/10/19 [History] Sertraline [Zoloft] 200 mg PO DAILY 06/10/19 [History] Warfarin [Coumadin] 2.5 mg PO SUMOTUTHFRSA 06/10/19 [History] Potassium Chloride ER [K-Dur 20] 20 meq PO DAILY 06/30/19 [History] Warfarin Sodium [Coumadin] 5 mg PO WE 06/30/19 [History] Aspirin EC [Ecotrin Low Dose] 81 mg PO DAILY 10/23/19 [History] Finasteride [Proscar] 5 mg PO DAILY 10/23/19 [History] amLODIPine [Norvasc] 5 mg PO HS 10/23/19 [History] Amoxicillin/Potassium Clav [Augmentin 875-125 Tablet] 1 tab PO Q12HR #42 tab 08/09 [Rx] predniSONE 40 mg PO DAILY #40 tab 10/29/19 [Rx] Follow up Appointment(s)/Referral(s): Syed Caal MD [Primary Care Provider] - 1-2 days [facility], [NON-STAFF] - Discharge Disposition: HOME WITH HOME HEALTH SERVICES
== END 2019-10-29 17:00 | disposition home health service (06) | DRG 871 ==
LOC: EC 13:54 → 4MS4W 16:02 → 4SSUR 17:04 → OBSVTOIN 10-24 22:49
PROVIDERS: ADMIT Family Medicine; ATTEND Family Medicine
DX: A41.51 Sepsis due to Escherichia coli [E. coli] (principal); G93.41 Metabolic encephalopathy; I69.354 Hemiplegia and hemiparesis following cerebral infarction affecting left non-dominant side; N39.0 Urinary tract infection, site not specified; D63.8 Anemia in other chronic diseases classified elsewhere; E87.6 Hypokalemia; F17.200 Nicotine dependence, unspecified, uncomplicated; I71.4 Abdominal aortic aneurysm, without rupture; R32 Unspecified urinary incontinence; R65.20 Severe sepsis without septic shock; Z79.01 Long term (current) use of anticoagulants; Z79.82 Long term (current) use of aspirin; Z79.899 Other long term (current) drug therapy; Z80.1 Family history of malignant neoplasm of trachea, bronchus and lung; Z82.49 Family history of ischemic heart disease and other diseases of the circulatory system; Z82.62 Family history of osteoporosis; Z85.51 Personal history of malignant neoplasm of bladder; Z87.440 Personal history of urinary (tract) infections; Z95.2 Presence of prosthetic heart valve; Z88.5 Allergy status to narcotic agent
CPT/HCPCS: 36415; 71046; 80048; 80053; 81001; 83605; 83735; 84132; 84484; 85025; 85610; 85730; 87040; 87077; 87086; 87186; 93005; 94640; 96360; 96361; 99285

== ENCOUNTER 2021-01-17 11:06 | Emergency (ER) | payer MEDICARE, BC ==
--- NOTE | 2021-01-17 12:12 | ED ---
General Adult HPI - General Chief complaint: Urogenital Stated complaint: Blood in urine Time Seen by Provider: 01/17/21 11:21 Source: family Mode of arrival: wheelchair Limitations: no limitations - History of Present Illness Initial comments: 85-year-old male with a past medical history of bladder cancer, CVA, prostate disorder, presents to the emergency room for a chief complaint of "blood in urine." Patient has had gross hematuria since yesterday. Daughter states that it has been soaking through his brief. She reports that he has had several surgeries in the past for his prostate and bladder cancer. Patient does take Coumadin for atrial fibrillation and heart valve. Patient has no other complaints. No pain. No lightheadedness. No difficulty urinating. Patient has no other complaints at this time including shortness of breath, chest pain, abdominal pain, nausea or vomiting, headache, or visual changes. - Related Data Home Medications Medication Instructions Recorded Confirmed Acetaminophen/Diphenhydramine 2 tab PO HS PRN 06/10/19 01/17/21 [Tylenol PM 500-25mg] Atorvastatin Calcium [Lipitor] 40 mg PO HS 06/10/19 01/17/21 Cholecalciferol [Vitamin D3 (25 1,000 unit PO DAILY 06/10/19 01/17/21 Mcg = 1000 Iu)] Multivitamins, Thera [Multivitamin 1 tab PO DAILY 06/10/19 01/17/21 (formulary)] Sertraline [Zoloft] 200 mg PO DAILY 06/10/19 01/17/21 hydroCHLOROthiazide 25 mg PO MOWEFR 06/10/19 01/17/21 hydroCHLOROthiazide [Hydrodiuril] 12.5 mg PO SUTUTHSA 06/10/19 01/17/21 Potassium Chloride ER [K-Dur 20] 20 meq PO DAILY 06/30/19 01/17/21 Warfarin Sodium [Coumadin] 2.5 mg PO HS 06/30/19 01/17/21 Aspirin EC [Ecotrin Low Dose] 81 mg PO HS 10/23/19 01/17/21 Finasteride [Proscar] 5 mg PO DAILY 10/23/19 01/17/21 amLODIPine [Norvasc] 2.5 mg PO HS 10/23/19 01/17/21 ALPRAZolam [Xanax] 0.25 mg PO DAILY PRN 01/17/21 01/17/21 Calm Sleep Tabs 1 tab PO HS 01/17/21 01/17/21 Cephalexin [Keflex] 500 mg PO Q12HR 01/17/21 01/17/21 Potassium Chloride ER [K-Dur 20] 20 meq PO MOWEFR@2100 01/17/21 01/17/21 Spironolactone [Aldactone] 12.5 mg PO SUTUTHSA 01/17/21 01/17/21 Spironolactone [Aldactone] 25 mg PO MOWEFR 01/17/21 01/17/21 Temazepam [Restoril] 15 mg PO HS PRN 01/17/21 01/17/21 Allergies Allergy/AdvReac Type Severity Reaction Status Date / Time morphine AdvReac Hallucinati Verified 01/17/21 12:22 ons Review of Systems ROS Statement: Those systems with pertinent positive or pertinent negative responses have been documented in the HPI. ROS Other: All systems not noted in ROS Statement are negative. Past Medical History Past Medical History: Cancer, CVA/TIA, Prostate Disorder Additional Past Medical History / Comment(s): ? aneurysm, Sepsis from UTI History of Any Multi-Drug Resistant Organisms: MRSA Date of last positivie culture/infection: 07/13/2014 MDRO Source:: Right Eye Past Surgical History: Bladder Surgery, Prostate Surgery Additional Past Surgical History / Comment(s): aortic valve rep. 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 Left hip fx with surgery,. right humerus Fx non sugical- 2007 Past Anesthesia/Blood Transfusion Reactions: No Reported Reaction Past Psychological History: No Psychological Hx Reported Smoking Status: Never smoker Past Alcohol Use History: None Reported Past Drug Use History: None Reported - Past Family History Father Family Medical History: Cancer Additional Family Medical History / Comment(s): lung cancer Mother Family Medical History: Hypertension Additional Family Medical History / Comment(s): osteoporosis General Exam Limitations: no limitations General appearance: alert, in no apparent distress Head exam: Present: atraumatic, normocephalic, normal inspection Eye exam: Present: normal appearance, PERRL, EOMI. Absent: scleral icterus, conjunctival injection, periorbital swelling ENT exam: Present: normal exam, mucous membranes moist Neck exam: Present: normal inspection, full ROM. Absent: tenderness, meningismus, lymphadenopathy Respiratory exam: Present: normal lung sounds bilaterally. Absent: respiratory distress, wheezes, rales, rhonchi, stridor Cardiovascular Exam: Present: regular rate, normal rhythm, normal heart sounds. Absent: systolic murmur, diastolic murmur, rubs, gallop, clicks GI/Abdominal exam: Present: soft, normal bowel sounds. Absent: distended, te nderness, guarding, rebound, rigid Neurological exam: Present: alert Course Vital Signs 01/17/21 01/17/21 01/17/21 11:16 12:15 13:00 Temperature 98.4 F Pulse Rate 45 L 46 L 50 L Respiratory 16 22 20 Rate Blood Pressure 150/72 120/53 137/89 O2 Sat by Pulse 97 97 99 Oximetry 01/17/21 14:00 Temperature Pulse Rate 49 L Respiratory 18 Rate Blood Pressure 149/65 O2 Sat by Pulse 99 Oximetry Medical Decision Making - Medical Decision Making Vitals are stable. Patient has a normal heart rate in the 40s according to his daughter who is a nurse practitioner. Patient does have gross hematuria. CBC is unremarkable. Hemoglobin is 13.5. CMP is unremarkable as well. INR of 2.4, patient does take Coumadin. Patient found to have greater than 182 red and white cells in his urine. Given history of bladder cancer treated years ago ultrasound was obtained. This did show a 4.7 cm solid intraluminal avascular bladder mass worrisome for neoplasm. Cystoscopy advised. Patient is able to urinate in the ER. Given patient's stable hemoglobin and vitals he can be discharged home. At this time patient will be started on Keflex to cover for possible infection, culture pending. He does have an established urologist and will call first thing Tuesday. We will hold Coumadin until then. Daughter is a nurse practitioner and will monitor patient. If bleeding worsens they will return for repeat hemoglobin. If he is not urinating she is aware to return for irrigation of the bladder. They will also follow up with primary care first thing Tuesday to discuss Coumadin. Already has an adequate supply of Keflex at home from a previous visit that daughter will give him. I discussed this case and reviewed US with attending Dr. Carmona who agrees with this assessment and treatment plan. - Lab Data Result diagrams: 01/17/21 12:09 01/17/21 12:09 Lab Results 01/17/21 01/17/2101/17/21 Range/Units 12:09 12:09 12:09 WBC 5.8 (3.8-10.6) k/uL RBC 4.27 L (4.30-5.90) m/uL Hgb 13.5 (13.0-17.5) gm/dL Hct 39.9 (39.0-53.0) % MCV 93.3 (80.0-100.0) fL MCH 31.6 (25.0-35.0) pg MCHC 33.8 (31.0-37.0) g/dL RDW 13.2 (11.5-15.5) % Plt Count 252 (150-450) k/uL MPV 7.5 Neutrophils % 68 % Lymphocytes % 16 % Monocytes % 7 % Eosinophils % 8 % Basophils % 1 % Neutrophils # 4.0 (1.3-7.7) k/uL Lymphocytes # 0.9 L (1.0-4.8) k/uL Monocytes # 0.4 (0-1.0) k/uL Eosinophils # 0.5 (0-0.7) k/uL Basophils # 0.0 (0-0.2) k/uL PT 23.5 H (9.0-12.0) sec INR 2.4 H (<1.2) APTT 35.9 H (22.0-30.0) sec Sodium 140 (137-145) mmol/L Potassium 3.7 (3.5-5.1) mmol/L Chloride 103 (98-107) mmol/L Carbon Dioxide 31 H (22-30) mmol/L Anion Gap 6 mmol/L BUN 14 (9-20) mg/dL Creatinine 0.85 (0.66-1.25) mg/dL Est GFR (CKD-EPI)AfAm >90 (>60 ml/min/1.73 sqM) Est GFR (CKD-EPI)NonAf 80 (>60 ml/min/1.73 sqM) Glucose 139 H (74-99) mg/dL Calcium 9.8 (8.4-10.2) mg/dL Total Bilirubin 0.7 (0.2-1.3) mg/dL AST 35 (17-59) U/L ALT 14 (4-49) U/L Alkaline Phosphatase 110 (38-126) U/L Total Protein 6.6 (6.3-8.2) g/dL Albumin 3.7 (3.5-5.0) g/dL Urine Color Urine Appearance (Clear) Urine RBC (0-5) /hpf Urine WBC (0-5) /hpf 01/17/21 Range/Units 13:04 WBC (3.8-10.6) k/uL RBC (4.30-5.90) m/uL Hgb (13.0-17.5) gm/dL Hct (39.0-53.0) % MCV (80.0-100.0) fL MCH (25.0-35.0) pg MCHC (31.0-37.0) g/dL RDW (11.5-15.5) % Plt Count (150-450) k/uL MPV Neutrophils % % Lymphocytes % % Monocytes % % Eosinophils % % Basophils % % Neutrophils # (1.3-7.7) k/uL Lymphocytes # (1.0-4.8) k/uL Monocytes # (0-1.0) k/uL Eosinophils # (0-0.7) k/uL Basophils # (0-0.2) k/uL PT (9.0-12.0) sec INR (<1.2) APTT (22.0-30.0) sec Sodium (137-145) mmol/L Potassium (3.5-5.1) mmol/L Chloride (98-107) mmol/L Carbon Dioxide (22-30) mmol/L Anion Gap mmol/L BUN (9-20) mg/dL Creatinine (0.66-1.25) mg/dL Est GFR (CKD-EPI)AfAm (>60 ml/min/1.73 sqM) Est GFR (CKD-EPI)NonAf (>60 ml/min/1.73 sqM) Glucose (74-99) mg/dL Calcium (8.4-10.2) mg/dL Total Bilirubin (0.2-1.3) mg/dL AST (17-59) U/L ALT (4-49) U/L Alkaline Phosphatase (38-126) U/L Total Protein (6.3-8.2) g/dL Albumin (3.5-5.0) g/dL Urine Color Dark Red Urine Appearance Bloody (Clear) Urine RBC >182 H (0-5) /hpf Urine WBC >182 H (0-5) /hpf Disposition Clinical Impression: Bladder mass, Urinary tract infection, Gross hematuria Disposition: HOME SELF-CARE Condition: Good Instructions (If sedation given, give patient instructions): Hematuria (ED) Additional Instructions: Give Keflex 3 times per day for 7-10 days. Please hold Coumadin until you speak with primary care or urology Tuesday. If the patient has worsening bleeding return for repeat hemoglobin. If patient is not urinating for greater than 12 hours he needs to return for bladder irrigation and Salcedo catheter. If he has any other worsening symptoms return as well. Is patient prescribed a controlled substance at d/c from ED?: No Referrals: Syed Caal MD [Primary Care Provider] - 1-2 days Chito Langford MD [STAFF PHYSICIAN] - 1-2 days Time of Disposition: 14:27
[2021-01-17 12:18] LABS: Basophils % (A) 1 %; Eosinophils # (A) 0.5 k/uL (0-0.7); Eosinophils % (A) 8 %; HCT 39.9 % (39.0-53.0); HGB 13.5 gm/dL (13.0-17.5); Lymphocytes # (A) 0.9 k/uL (1.0-4.8); Lymphocytes % (A) 16 %; MCH 31.6 pg (25.0-35.0); MCHC 33.8 g/dL (31.0-37.0); MCV 93.3 fL (80.0-100.0); Mean Platelet Volume 7.5; Monocytes # (A) 0.4 k/uL (0-1.0); Monocytes % (A) 7 %; Neutrophils % (A) 68 %; Platelet Count 252 k/uL (150-450); RBC 4.27 m/uL (4.30-5.90); RDW 13.2 % (11.5-15.5); WBC 5.8 k/uL (3.8-10.6)
[2021-01-17 12:31] LABS: INR 2.4 (<1.2); Partial Thromboplastin Time 35.9 sec (22.0-30.0); Prothrombin Time 23.5 sec (9.0-12.0)
[2021-01-17 12:33] LABS: ALT 14 U/L (4-49); AST 35 U/L (17-59); African American GFR (CKD) >90 (>60 ml/min/1.73 sqM); Albumin 3.7 g/dL (3.5-5.0); Alkaline Phosphatase 110 U/L (38-126); Anion Gap 6 mmol/L; Blood Urea Nitrogen 14 mg/dL (9-20); Calcium 9.8 mg/dL (8.4-10.2); Carbon Dioxide 31 mmol/L (22-30); Chloride 103 mmol/L (98-107); Glucose 139 mg/dL (74-99); Non-African American GFR(CKD) 80 (>60 ml/min/1.73 sqM); Potassium 3.7 mmol/L (3.5-5.1); Sodium 140 mmol/L (137-145); Total Bilirubin 0.7 mg/dL (0.2-1.3); Total Protein 6.6 g/dL (6.3-8.2)
--- NOTE | 2021-01-17 12:49 | US ---
EXAMINATION TYPE: US kidneys/renal and bladder DATE OF EXAM: 01/17/2021 COMPARISON: US 2012 CLINICAL HISTORY: edvin hematuria. EXAM MEASUREMENTS: Right Kidney: 11.2 x 5.0 x 5.9 cm Left Kidney: 10.5 x 5.7 x 5.4 cm Right Kidney: No hydronephrosis or masses seen Left Kidney: No hydronephrosis or masses seen Bladder: Bladder mass measures 4.7 x 2.7 x 4.7 cm There is no evidence for hydronephrosis at this point in time. No nephrolithiasis is seen. No octavio s are identified. The urinary bladder is satisfactorily distended. Bilateral ureteral jets are not seen. Lobulated heterogeneous avascular bladder mass posteriorly. IMPRESSION: There is 4.7 cm solid intraluminal bladder mass worrisome for neoplasm given patient's hi story of hematuria. Further investigation with cystoscopy is advised.
[2021-01-17] MEDS ORDERED: SODIUM CHLORIDE 0.9% 500 ML 500 ML IV STA (13:42)
[2021-01-17 13:55] LABS: RBC,Urine >182 /hpf (0-5); WBC,Urine >182 /hpf (0-5)
[2021-01-17 13:57] LABS: Appearance,Urine Bloody (Clear); Color,Urine Dark Red
[2021-01-17] MEDS ORDERED: CEPHALEXIN 500 MG CAP PO STA (14:25)
[2021-01-17 15:23] VITALS: BP 151/72; PULSE 45; RESP 20; TEMP 98.2
== END 2021-01-17 14:50 | disposition home or self-care (01) ==
LOC: EC 11:06
DX: N39.0 Urinary tract infection, site not specified (principal); N32.89 Other specified disorders of bladder; I48.91 Unspecified atrial fibrillation; Z79.01 Long term (current) use of anticoagulants; Z79.82 Long term (current) use of aspirin; Z79.899 Other long term (current) drug therapy; Z85.51 Personal history of malignant neoplasm of bladder; Z88.5 Allergy status to narcotic agent; Z86.73 Personal history of transient ischemic attack (TIA), and cerebral infarction without residual deficits; Z98.890 Other specified postprocedural states
CPT/HCPCS: 36415; 76770; 80053; 81001; 85025; 85610; 85730; 87086; 99284

== ENCOUNTER 2021-01-18 17:27 | Emergency (ER) | payer MEDICARE, BC ==
[2021-01-18 17:34] VITALS: BP 155/73; PULSE 56; RESP 20; TEMP 98.1
--- NOTE | 2021-01-18 17:58 | ED ---
General Adult HPI - General Source: family, RN notes reviewed Mode of arrival: wheelchair Limitations: no limitations <Ramy Timmons - Last Filed: 01/18/21 18:31> <Pebbles Argueta - Last Filed: 01/20/21 13:31> - General Chief complaint: Abdominal Pain Stated complaint: Not able to urinate Time Seen by Provider: 01/18/21 17:49 - History of Present Illness Initial comments: Patient is an 85-year-old male that presents to the emergency department with urinary retention. He was here last night for the similar issue radiates straight cath. He was informed that if he is unable to urinate or any pain or discomfort happen to come back. Patient does have a bladder mass that is causing her to have hematuria. He was in no apparent discomfort or pain while sitting up in bed during the exam or interview. His daughter stated that she would like a Salcedo inserted so they can follow up with urologist without having to come back to emergency department. He denied any chest pain shortness breath headache nausea vomiting diarrhea constipation fever fatigue chills (Ramy Timmons) - Related Data Home Medications Medication Instructions Recorded Confirmed Acetaminophen/Diphenhydramine 2 tab PO HS PRN 06/10/19 01/17/21 [Tylenol PM 500-25mg] Atorvastatin Calcium [Lipitor] 40 mg PO HS 06/10/19 01/17/21 Cholecalciferol [Vitamin D3 (25 1,000 unit PO DAILY 06/10/19 01/17/21 Mcg = 1000 Iu)] Multivitamins, Thera [Multivitamin 1 tab PO DAILY 06/10/19 01/17/21 (formulary)] Sertraline [Zoloft] 200 mg PO DAILY 06/10/19 01/17/21 hydroCHLOROthiazide 25 mg PO MOWEFR 06/10/19 01/17/21 hydroCHLOROthiazide [Hydrodiuril] 12.5 mg PO SUTUTHSA 06/10/19 01/17/21 Potassium Chloride ER [K-Dur 20] 20 meq PO DAILY 06/30/19 01/17/21 Warfarin Sodium [Coumadin] 2.5 mg PO HS 06/30/19 01/17/21 Aspirin EC [Ecotrin Low Dose] 81 mg PO HS 10/23/19 01/17/21 Finasteride [Proscar] 5 mg PO DAILY 10/23/19 01/17/21 amLODIPine [Norvasc] 2.5 mg PO HS 10/23/19 01/17/21 ALPRAZolam [Xanax] 0.25 mg PO DAILY PRN 01/17/21 01/17/21 Calm Sleep Tabs 1 tab PO HS 01/17/21 01/17/21 Cephalexin [Keflex] 500 mg PO Q12HR 01/17/21 01/17/21 Potassium Chloride ER [K-Dur 20] 20 meq PO MOWEFR@2100 01/17/21 01/17/21 Spironolactone [Aldactone] 12.5 mg PO SUTUTHSA 01/17/21 01/17/21 Spironolactone [Aldactone] 25 mg PO MOWEFR 01/17/21 01/17/21 Temazepam [Restoril] 15 mg PO HS PRN 01/17/21 01/17/21 Allergies Allergy/AdvReac Type Severity Reaction Status Date / Time morphine AdvReac Hallucinati Verified 01/18/21 17:34 ons Review of Systems ROS Other: All systems not noted in ROS Statement are negative. <Ramy Timmons - Last Filed: 01/18/21 18:31> ROS Other: All systems not noted in ROS Statement are negative. <Pebbles Argueta - Last Filed: 01/20/21 13:31> ROS Statement: Those systems with pertinent positive or pertinent negative responses have been documented in the HPI. Past Medical History Past Medical History: Cancer, CVA/TIA, Prostate Disorder Additional Past Medical History / Comment(s): ? aneurysm, Sepsis from UTI History of Any Multi-Drug Resistant Organisms: MRSA Date of last positivie culture/infection: 07/13/2014 MDRO Source:: Right Eye Past Surgical History: Bladder Surgery, Prostate Surgery Additional Past Surgical History / Comment(s): aortic valve rep. 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 Left hip fx with surgery,. right humerus Fx non sugical- 2007 Past Anesthesia/Blood Transfusion Reactions: No Reported Reaction Past Psychological History: No Psychological Hx Reported Smoking Status: Never smoker Past Alcohol Use History: None Reported Past Drug Use History: None Reported - Past Family History Father Family Medical History: Cancer Additional Family Medical History / Comment(s): lung cancer Mother Family Medical History: Hypertension Additional Family Medical History / Comment(s): osteoporosis <Ramy Timmons - Last Filed: 01/18/21 18:31> General Exam Limitations: no limitations General appearance: alert, in no apparent distress Head exam: Present: atraumatic, normocephalic, normal inspection Eye exam: Present: normal appearance, PERRL, EOMI. Absent: scleral icterus, conjunctival injection, periorbital swelling ENT exam: Present: normal exam, mucous membranes moist, other (Patient is hard of hearing.) Neck exam: Present: normal inspection. Absent: tenderness, meningismus, lymphadenopathy Respiratory exam: Present: normal lung sounds bilaterally. Absent: respiratory distress, wheezes, rales, rhonchi, stridor Cardiovascular Exam: Present: regular rate, normal rhythm, normal heart sounds. Absent: systolic murmur, diastolic murmur, rubs, gallop, clicks GI/Abdominal exam: Present: soft, tenderness (Suprapubic, most likely due to urinary retention), normal bowel sounds. Absent: distended, guarding, rebound, rigid Extremities exam: Present: normal inspection, full ROM, normal capillary refill. Absent: tenderness, pedal edema, joint swelling, calf tenderness Neurological exam: Present: alert, oriented X3, CN II-XII intact Psychiatric exam: Present: normal affect, normal mood Skin exam: Present: warm, dry, intact, normal color. Absent: rash <Ramy Timmons - Last Filed: 01/18/21 18:31> Course Vital Signs 01/18/21 17:31 Temperature 98.1 F Pulse Rate 56 L Respiratory 20 Rate Blood Pressure 155/73 O2 Sat by Pulse 97 Oximetry Medical Decision Making <Ramy Timmons - Last Filed: 01/18/21 18:31> <Pebbles Argueta - Last Filed: 01/20/21 13:31> - Medical Decision Making 85-year-old male with bladder retention secondary to mass. Bladder scan ordered and Salcedo catheter insertion ordered. If catheter insertion was successful, it is draining well. Case discussed with Dr. Argueta, decided patient to discharge home with follow-up to urologist. (Ramy Timmons) I was available for consultation in the emergency department. The history and physical exam were done by the midlevel provider. I was consulted for this patients care. I reviewed the case with the midlevel provider and based on their presentation of the patient, I agree with the assessment, medical decision making and plan of care as documented. Chart was dictated using [employer] dictation software. Attempts were made to correct any dictation errors however some typographical errors may persist. Patient was seen during a national state of emergency due to the Covid-19 pandemic. (Pebbles Argueta) Disposition Is patient prescribed a controlled substance at d/c from ED?: No Time of Disposition: 18:32 <Ramy Timmons - Last Filed: 01/18/21 18:31> <Pebbles Argueta - Last Filed: 01/20/21 13:31> Clinical Impression: Bladder mass, Gross hematuria, Urinary retention Disposition: HOME SELF-CARE Condition: Stable Instructions (If sedation given, give patient instructions): Urinary Retention in Men (ED) Additional Instructions: Please return to the Emergency Department if symptoms worsen or any other conc erns. Follow-up with primary care and urologist as soon as possible. Drain Salcedo bag as needed. Referrals: Syed Caal MD [Primary Care Provider] - 1-2 days
--- NOTE | 2021-01-18 18:34 | ED ---
Disposition Clinical Impression: Bladder mass, Gross hematuria, Urinary retention Disposition: HOME SELF-CARE Condition: Stable Instructions (If sedation given, give patient instructions): Urinary Retention in Men (ED) Additional Instructions: Please return to the Emergency Department if symptoms worsen or any other concerns. Follow-up with primary care and urologist as soon as possible. Drain Salcedo bag as needed. Is patient prescribed a controlled substance at d/c from ED?: No Referrals: Syed Caal MD [Primary Care Provider] - 1-2 days Procedures - Catheter Insertion (Urinary) Indications: to alleviate urinary retention Does Patient Have: other (Bladder mass) Prophylactic Antibiotics Given: No Bladder Scan/US before Catheterization: Yes Type of Catheter Inserted: Salcedo Topical Anesthesia Used: No Results: successfully catheterized-immediate flow Patient Tolerated Procedure: well
== END 2021-01-18 19:09 | disposition home or self-care (01) ==
LOC: EC 17:27
DX: R31.0 Gross hematuria (principal); N32.9 Bladder disorder, unspecified; Z79.82 Long term (current) use of aspirin; Z86.73 Personal history of transient ischemic attack (TIA), and cerebral infarction without residual deficits
CPT/HCPCS: 51702; 99284

== ENCOUNTER 2022-03-21 12:50 | Inpatient (IN) | payer BC, MEDICARE ==
[2022-03-21 13:14] LABS: Basophils % (A) 0 %; Eosinophils # (A) 0.2 k/uL (0-0.7); Eosinophils % (A) 2 %; HCT 37.5 % (39.0-53.0); HGB 11.9 gm/dL (13.0-17.5); Lymphocytes # (A) 0.8 k/uL (1.0-4.8); Lymphocytes % (A) 5 %; MCH 30.5 pg (25.0-35.0); MCHC 31.7 g/dL (31.0-37.0); MCV 96.1 fL (80.0-100.0); Mean Platelet Volume 7.2; Monocytes # (A) 0.4 k/uL (0-1.0); Monocytes % (A) 3 %; Neutrophils # (A) 13.5 k/uL (1.3-7.7); Neutrophils % (A) 90 %; Platelet Count 341 k/uL (150-450); RDW 13.9 % (11.5-15.5)
[2022-03-21 13:22] LABS: INR 2.3 (<1.2); Partial Thromboplastin Time 32.5 sec (22.0-30.0); Prothrombin Time 23.2 sec (9.0-12.0)
--- NOTE | 2022-03-21 13:25 | ED ---
General Adult HPI - General Chief complaint: Fall Stated complaint: Fall Time Seen by Provider: 03/21/22 12:52 Source: EMS Mode of arrival: EMS Limitations: no limitations - History of Present Illness Initial comments: Dictation was produced using [employer] dictation software. please excuse any grammatical, word or spelling errors. Chief Complaint: 86-year-old male past medical history of dementia on Kelsey coagulation therapy presents to the emergency department after fall History of Present Illness: Patient 86-year-old male who presents to the emergency department after fall. He is brought in by EMS. Patient allegedly fell at home. Patient is demented and is a poor historian at baseline. Patient denies any complaints. EMS reports the patient suffered a head laceration. He is also complaining of deformity to his right ankle. Patient also complained to EMS of left upper extremity pain. He has history of left-sided weakness that is chronic The ROS documented in this emergency department record has been reviewed and confirmed by me. Those systems with pertinent positive or negative responses have been documented in the HPI. All other systems are other negative and/or noncontributory. PHYSICAL EXAM: General Impression: Alert and oriented x3, not in acute distress HEENT: 4 centimeter laceration to the left forehead, Steri-Strips in place, extra-ocular movements intact, pupils equal and reactive to light bilaterally, mucous membranes moist. Cardiovascular: Heart regular rate and rhythm Chest: Able to complete full sentences, no retractions, no tachypnea Abdomen: abdomen soft, non-tender, non-distended, no organomegaly Musculoskeletal: Pulses present and equal in all extremities, no peripheral edema, some tenderness with movement at the left elbow, no gross deformity of the right ankle Motor: no focal deficits noted Neurological: CN II-XII grossly intact, no focal motor or sensory deficits noted Skin: Intact with no visualized rashes Psych: Normal affect and mood ED course: 86-year-old male past medical history of dementia, anechoic ablation therapy presents to the ER after fall. Vital Signs upon arrival are within acceptable limits. He presents with left upper extremity pain and right lower extremity pain. Patient asked if he wanted analgesics upon initial arrival he refused. More history was obtained from daughter. Daughter reports that patient lives with her other daughter. He was left unattended for a brief moment when patient was trying to pick something off the floor from his wheelchair. He fell forward striking his head and injuring his left arm and right lower extremity. Daughter reports that it is not uncommon that patient tries to get out of his wheelchair. Laboratory evaluation obtained. Leukocytosis of 15.0 likely stress from the injury. Hemoglobin 11.9. Coag panel shows INR of 2.3. Metabolic panel is unremarkable. Troponin is negative. Computed tomography scan of the head and C-spine shows no acute injuries. Chest x-ray shows postsurgical changes, calcified thoracic aortic arch. Daughter at the bedside reports that patient is a aortic dissection survivor. His mild cardiomegaly with vascular congestion concerning for CHF otherwise no traumatic issues. Foot x-ray shows no foot abnormalities. Pelvis x-ray nonacute. Shoulder x-ray shows minimally displaced fracture of the left humeral head. Tib-fib x-ray shows fractures of the right tibia and fibula. Elbow x-ray shows no acute injuries. Patient placed in a right posterior mold splint to the right lower extremity. Case discussed with Dr. Mata who requests the patient be admitted to medicine due to his multiple comorbidities. Dr. Mata will decided patient is a candidate for surgical intervention tomorrow. He reports that they likely will pursue the nonoperative route. Patient placed in a left upper trauma sling for concerns of humeral head fracture. EKG interpretation: Ventricular rate 67, sinus rhythm, TX interval 140, care is 106, QTC 441. No TX prolongation, no QTC prolongation, no ST or T-wave changes noted. EKG compared to 10/23/2019 showing no changes. Overall, this EKG is unremarkable There was question about patient's CODE STATUS requested the patient be no code. - Related Data Home Medications Medication Instructions Recorded Confirmed Acetaminophen/Diphenhydramine 2 tab PO HS PRN 06/10/19 01/17/21 [Tylenol PM 500-25mg] Atorvastatin Calcium [Lipitor] 40 mg PO HS 06/10/19 01/17/21 Cholecalciferol [Vitamin D3 (25 1,000 unit PO DAILY 06/10/19 01/17/21 Mcg = 1000 Iu)] Multivitamins, Thera [Multivitamin 1 tab PO DAILY 06/10/19 01/17/21 (formulary)] Sertraline [Zoloft] 200 mg PO DAILY 06/10/19 01/17/21 hydroCHLOROthiazide 25 mg PO MOWEFR 06/10/19 01/17/21 hydroCHLOROthiazide [Hydrodiuril] 12.5 mg PO SUTUTHSA 06/10/19 01/17/21 Potassium Chloride ER [K-Dur 20] 20 meq PO DAILY 06/30/19 01/17/21 Warfarin Sodium [Coumadin] 2.5 mg PO HS 06/30/19 01/17/21 Aspirin EC [Ecotrin Low Dose] 81 mg PO HS 10/23/19 01/17/21 Finasteride [Proscar] 5 mg PO DAILY 10/23/19 01/17/21 amLODIPine [Norvasc] 2.5 mg PO HS 10/23/19 01/17/21 ALPRAZolam [Xanax] 0.25 mg PO DAILY PRN 01/17/21 01/17/21 Calm Sleep Tabs 1 tab PO HS 01/17/21 01/17/21 Cephalexin [Keflex] 500 mg PO Q12HR 01/17/21 01/17/21 Potassium Chloride ER [K-Dur 20] 20 meq PO MOWEFR@2100 01/17/21 01/17/21 Spironolactone [Aldactone] 12.5 mg PO SUTUTHSA 01/17/21 01/17/21 Spironolactone [Aldactone] 25 mg PO MOWEFR 01/17/21 01/17/21 Temazepam [Restoril] 15 mg PO HS PRN 01/17/21 01/17/21 Allergies Allergy/AdvReac Type Severity Reaction Status Date / Time morphine AdvReac Hallucinati Verified 03/21/22 15:00 ons Review of Systems ROS Statement: Those systems with pertinent positive or pertinent negative responses have been documented in the HPI. ROS Other: All systems not noted in ROS Statement are negative. Past Medical History Past Medical History: Cancer, CVA/TIA, Prostate Disorder Additional Past Medical History / Comment(s): ? aneurysm, Sepsis from UTI History of Any Multi-Drug Resistant Organisms: MRSA Date of last positivie culture/infection: 07/13/2014 MDRO Source:: Right Eye Past Surgical History: Bladder Surgery, Prostate Surgery Additional Past Surgical History / Comment(s): aortic valve rep. 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 Left hip fx with surgery,. right humerus Fx non sugical- 2007 Past Anesthesia/Blood Transfusion Reactions: No Reported Reaction Past Psychological History: No Psychological Hx Reported Smoking Status: Never smoker Past Alcohol Use History: None Reported Past Drug Use History: None Reported - Past Family History Father Family Medical History: Cancer Additional Family Medical History / Comment(s): lung cancer Mother Family Medical History: Hypertension Additional Family Medical History / Comment(s): osteoporosis General Exam Limitations: no limitations Course Vital Signs 03/21/22 12:52 Temperature 97.6 F Pulse Rate 58 L Respiratory 18 Rate Blood Pressure 182/90 O2 Sat by Pulse 92 L Oximetry Procedures - Laceration Laceration #1 Consent Obtained: verbal consent Indication: laceration Site: scalp Description: linear Size of Sutures: other Technique: other (dermabond) Patient Tolerated Procedure: well - Orthopedic Splinting/Casting Injury #1 Side: right Lower Extremity Injury Location: short leg Medical Decision Making - Lab Data Result diagrams: 03/21/22 13:05 03/21/22 13:05 Lab Results 03/21/22 03/21/22 03/21/22 Range/Units 13:05 13:05 13:05 WBC 15.0 H (3.8-10.6) k/uL RBC 3.90 L (4.30-5.90) m/uL Hgb 11.9 L (13.0-17.5) gm/dL Hct 37.5 L (39.0-53.0) % MCV 96.1 (80.0-100.0) fL MCH 30.5 (25.0-35.0) pg MCHC 31.7 (31.0-37.0) g/dL RDW 13.9 (11.5-15.5) % Plt Count 341 (150-450) k/uL MPV 7.2 Neutrophils % 90 % Lymphocytes % 5 % Monocytes % 3 % Eosinophils % 2 % Basophils % 0 % Neutrophils # 13.5 H (1.3-7.7) k/uL Lymphocytes # 0.8 L (1.0-4.8) k/uL Monocytes # 0.4 (0-1.0) k/uL Eosinophils # 0.2 (0-0.7) k/uL Basophils # 0.0 (0-0.2) k/uL PT 23.2 H (9.0-12.0) sec INR 2.3 H (<1.2) APTT 32.5 H (22.0-30.0) sec Sodium 139 (137-145) mmol/L Potassium 4.0 (3.5-5.1) mmol/L Chloride 104 (98-107) mmol/L Carbon Dioxide 28 (22-30) mmol/L Anion Gap 7 mmol/L BUN 10 (9-20) mg/dL Creatinine 0.79 (0.66-1.25) mg/dL Est GFR (CKD-EPI)AfAm >90 (>60 ml/min/1.73 sqM) Est GFR (CKD-EPI)NonAf 82 (>60 ml/min/1.73 sqM) Glucose 123 H (74-99) mg/dL Calcium 9.2 (8.4-10.2) mg/dL Troponin I (0.000-0.034) ng/mL 03/21/22 Range/Units 13:05 WBC (3.8-10.6) k/uL RBC (4.30-5.90) m/uL Hgb (13.0-17.5) gm/dL Hct (39.0-53.0) % MCV (80.0-100.0) fL MCH (25.0-35.0) pg MCHC (31.0-37.0) g/dL RDW (11.5-15.5) % Plt Count (150-450) k/uL MPV Neutrophils % % Lymphocytes % % Monocytes % % Eosinophils % % Basophils % % Neutrophils # (1.3-7.7) k/uL Lymphocytes # (1.0-4.8) k/uL Monocytes # (0-1.0) k/uL Eosinophils # (0-0.7) k/uL Basophils # (0-0.2) k/uL PT (9.0-12.0) sec INR (<1.2) APTT (22.0-30.0) sec Sodium (137-145) mmol/L Potassium (3.5-5.1) mmol/L Chloride (98-107) mmol/L Carbon Dioxide (22-30) mmol/L Anion Gap mmol/L BUN (9-20) mg/dL Creatinine (0.66-1.25) mg/dL Est GFR (CKD-EPI)AfAm (>60 ml/min/1.73 sqM) Est GFR (CKD-EPI)NonAf (>60 ml/min/1.73 sqM) Glucose (74-99) mg/dL Calcium (8.4-10.2) mg/dL Troponin I <0.012 (0.000-0.034) ng/mL Disposition Clinical Impression: Tibial fracture, Humeral head fracture, Forehead laceration Disposition: ADMITTED IP TO THIS [facility] Condition: Serious Referrals: None,Stated [REFERRING] - 1-2 days Decision Time: 15:07
[2022-03-21 13:29] LABS: African American GFR (CKD) >90 (>60 ml/min/1.73 sqM); Anion Gap 7 mmol/L; Blood Urea Nitrogen 10 mg/dL (9-20); Calcium 9.2 mg/dL (8.4-10.2); Carbon Dioxide 28 mmol/L (22-30); Chloride 104 mmol/L (98-107); Glucose 123 mg/dL (74-99); Non-African American GFR(CKD) 82 (>60 ml/min/1.73 sqM); Sodium 139 mmol/L (137-145)
[2022-03-21] MEDS ORDERED: ONDANSETRON 4 MG/2 ML VIAL IVP STA (13:40)
--- NOTE | 2022-03-21 13:57 | CT ---
EXAMINATION TYPE: CT brain [facility] DATE OF EXAM: 03/21/2022 COMPARISON: 06/10/2013 HISTORY: fall CT DLP: 1479 mGycm, Automated exposure control for dose reduction was used. CONTRAST: Patient injected with 0 mL of Isovue 300. CT of the brain is performed utilizing 3 mm thick sections through the posterior fossa and 3 mm thick sections through the remaining calvarium. Study is performed within 24 hours of arrival to the hospital. No abnormal hyperdensity is present to suggest an acute intracranial hemorrhage. No mass lesion is evident. No acute infarcts are evident. There is an old infarct in the inferior right cerebellum. There is an old right middle cerebral artery infarct with ex vacuo effect on the lateral ventricle and sulci. Pe riventricular white matter hypodensity is present compatible with prior ischemic change. There is timi e mild periventricular white matter hypodensity on the left which can be related to chronic white mat ter ischemic change. Ventricles and sulci are prominent for the patient age. Paranasal sinuses and mastoid air cells within the [id number] are clear. Soft tissue swelling is o jimbo the left frontal temporal region. IMPRESSIONS: 1. Old infarcts and chronic appearing periventricular white matter ischemic changes discussed above. No acute intracranial process radiographically evident. Follow-up MRI can be performed as clinically indicated. CT cervical spine. COMPARISON: None CT of the cervical spine is performed in the axial plane at 2 mm thick sections. Reconstructed image s in the coronal, and sagittal plane are reviewed on the computer. No acute fractures are evident. There is a kyphosis within the upper cervical spine which can be related to patient positioning or mu scle spasm. Diffuse loss of disc height is present throughout the cervical spine. Vertebral body heights are preserved. Endplate changes are present greater to the left paracentral region C6-C7 with moderate anterior thec al sac compression. Correlate with left radicular symptoms. Some uncovertebral joint hypertrophy is c ontributing to bilateral foraminal narrowing C5-6. IMPRESSIONS: 1. Degenerative disc changes throughout the cervical spine. 2. Endplate changes C6-7 with some endplate spurring contributing to moderate left paracentral anteri or thecal sac compression. Correlate with left radicular symptoms at this level. 3. Slight kyphosis which can be related to patient positioning or muscle spasm. 4. No acute osseous abnormality cervical spine.
--- NOTE | 2022-03-21 14:07 | XR ---
EXAMINATION TYPE: XR chest 1V portable DATE OF EXAM: 03/21/2022 COMPARISON: 10/26/2019 HISTORY: Fall TECHNIQUE: Single frontal view of the chest is obtained. FINDINGS: There are postsurgical changes with prosthetic heart valve and sternotomy wires. There is moderate cardiomegaly pulmonary vascular congestion consistent with CHF. Superior white thor acic aortic arch as well as calcified likely indicating aneurysm. This was seen previously. There is prominence right hilum positive hilar mass or adenopathy is not excluded. There is no large pleural effusion thorax. There is marked degenerative change of the left glenohumeral joint with chronic rotator cuff tear. There is moderate scoliosis thoracic spine. No acute fractures are seen. IMPRESSION: 1. Postsurgical changes for cardiac valve replacement. 2. Calcified large thoracic aortic arch consistent with aneurysm or dissection. This was seen previou sly and is stable. 3. Right hilar dominance has developed in the interval in right hilar mass or adenopathy is not exclu ded. CT of the chest useful for further evaluation. 4.Moderate cardiomegaly and moderate vascular congestion and interstitial edema. Findings most consis tent with CHF. Clinical correlation is recommended IMPRESSION: No acute process.
--- NOTE | 2022-03-21 14:09 | XR ---
EXAMINATION TYPE: XR foot complete RT DATE OF EXAM: 03/21/2022 COMPARISON: None HISTORY: Fall with pain TECHNIQUE: Three-view right foot FINDINGS: Plantar and Achilles tendon calcaneal heel spurs are present. Vascular calcification is pre sent. No acute fractures are evident. Structures are osteopenic which may make occult fracture identificati on difficult. Follow-up exams should be performed 7-10 days from acute trauma for continued pain. IMPRESSION: 1. No acute osseous abnormality is identified. Follow-up exam 7-10 days from acute trauma should be performed for continued pain.
--- NOTE | 2022-03-21 14:10 | XR ---
Pelvis. HISTORY: Trauma COMPARISON: 06/10/2019 TECHNIQUE: Single AP view the pelvis. FINDINGS: There are 3 transvenous femoral neck screws for fixation of left femoral fracture. There is moderate to marked degenerative change hips bilaterally. There is mild osteopenia. There is marked degenerative change L4-5 and L5-S1 levels. There is no acute fracture of the pelvis. There is no diastases of the SI joints or pubic symphysis. IMPRESSION: Postsurgical changes involving the left hip and moderate to marked degenerative changes of the hips a nd lower lumbar spine. There is no acute fracture. There is been no interval change since the prior s tudy.
--- NOTE | 2022-03-21 14:26 | XR ---
Left shoulder HISTORY: Pain following trauma. COMPARISON: None. TECHNIQUE: 4 views of the left shoulder were obtained. FINDINGS: There is marked osteopenia. There is marked degenerative change of the glenohumeral joint. There is a minimally displaced fracture involving the superior aspect of the left, also involving the greater tuberosity. The clavicle and scapula appear intact. IMPRESSION: Minimally displaced fracture of the left humeral head.
--- NOTE | 2022-03-21 14:28 | XR ---
Right tibia and fibula. HISTORY: Pain following trauma. COMPARISON: None. TECHNIQUE: 4 views of the right tibia and fibula were obtained. FINDINGS: There is a mildly displaced spiral fracture of the distal right tibial diaphysis. A minimally displac ed fracture of the proximal fibular metaphysis is also suspected. There is diffuse osteopenia. IMPRESSION: Fractures of the right tibia and fibula as described above.
--- NOTE | 2022-03-21 14:29 | XR ---
Left elbow. HISTORY: Pain following trauma. COMPARISON: None. TECHNIQUE: 3 views left elbow were obtained. FINDINGS: There is no fracture, dislocation, intraosseous or intra-articular abnormality. There is moderate dif fuse osteopenia. There is no radiopaque foreign body or abnormal soft tissue calcification. IMPRESSION: No evidence of acute trauma with no fracture or dislocation.
[2022-03-21] MEDS ORDERED: TOPICAL SKIN ADHESIVE 1 EACH AMP TOPICAL ONE (14:44)
[2022-03-21] MEDS ORDERED: MORPHINE SULFATE 2 MG/ML SYRINGE IV STA (14:47)
[2022-03-21] MEDS ORDERED: NALOXONE 0.4 MG/ML 1 ML VIAL IV PRN (14:57)
[2022-03-21] MEDS ORDERED: MORPHINE SULFATE 4 MG/ML SYRINGE IV PRN (14:57)
[2022-03-21] MEDS ORDERED: ONDANSETRON 4 MG/2 ML VIAL IVP PRN (14:57)
[2022-03-21] MEDS ORDERED: SODIUM CHLORIDE 0.9% 1,000 ML IV SCH (15:00)
[2022-03-21] MEDS: ACETAMINOPHEN TAB 325 MG TAB PO PRN (18:49)
[2022-03-21] MEDS: ALPRAZolam 0.25 MG TAB PO PRN (22:14)
[2022-03-22] MEDS ORDERED: PANTOPRAZOLE 40 MG/10 ML VIAL IV SCH (09:00)
[2022-03-22] MEDS ORDERED: HYDROcodone/APAP 5-325MG 1 EACH TAB PO PRN (12:08)
--- NOTE | 2022-03-22 13:54 | P.HPIM ---
History of Present Illness H&P Date: 03/22/22 Chief Complaint: Fall This is a pleasant 86-year-old patient who follows with visiting physicians Dr. Kurtz. Patient lives with his daughter Diana and present at the bedside is patient's power of ring cutter lathe operator her other Dr. Huy Jamil/BARRETT. 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 Or the period of last 1 year has progressively become weak. Had been using a hemiwalker prior to that. Now just about able to transfer to the wheelchair. Was up to the sink to wash up. Patient is able to feed himself with his right arm. This may diapers. For some time patient appetite is gone down. The last 2 weeks patient had a congested cough. Patient sometimes also chokes. Yesterday patient was at the sink washing himself. Daughter stepped out for a m inute. He dropped something before bedtime to avoid any fell forward. As a result patient has a fracture of the right distal tibia and fibula and also injury to the left shoulder. Most of the history is obtained by the daughter the bedside. Patient is able to answer some simple questions. Does note dizziness, lightheadedness no chest pain or palpitation. This was purely a mechanical fall. Due to poor balance. He has sensation of the left arm and leg. Review of systems: GEN.: Tired EYES: Decreased vision HEENT: Decreased hearing. chokes sometimes NECK: None RESPIRATORY: Some congested cough CARDIOVASCULAR: None GASTROINTESTINAL: None GENITOURINARY: Incontinent MUSCULOSKELETAL: Pain in different joints LYMPHATICS: None HEMATOLOGICAL: None PSYCHIATRY: Forgetful NEUROLOGICAL: Decreased bottle and the left side from prior stroke Past medical history to include: Stroke with left-sided weakness, prostate surgery for bladder cancer, aortic dissection, aortic valve repair, one testicle removed, depression. Social history: Lives with his daughter Diana. Patient's other daughter Huy Jamil is the DPOAE. Patient needs help transfer from bed to the chair. Has a lift. No history of smoking or alcohol Family history: Lung cancer Physical examination: VITAL SIGNS: 97.6, 58, 18, 152/89, 92% room air GENERAL: BMI 26.4, reclining in bed, awake, tired. EYES: Pupils equal. Conjunctiva normal. HEENT: External appearance of nose and ears normal, oral cavity grossly normal. Decreased hearing NECK: JVD not raised; masses not palpable. HEART: First and second heart sounds are normal; no edema. LUNGS:[ Respiratory rate normal; decreased breath sounds. ABDOMEN: Soft, nontender, liver spleen not palpable, no masses palpable. PSYCH: Patient able to answer simple questions.l. MUSCULOSKELETAL: Limited range of motion left shoulder. Vinay wrap dressing to the right lower extremity. Evidence of OA. NEUROLOGICAL: [Cranial nerves grossly intact; no facial asymmetry, decreased power on the left side. LYMPHATICS: No lymph nodes palpable in the axilla and neck INVESTIGATIONS, reviewed in the clinical context: White count 15 hemoglobin 11.9 platelets 341 INR 2.3 sodium 139 potassium 4 BUN 10 creatinine 0.79 Troponin I less than 0.012 EKG tracing personally reviewed by me-normal sinus rhythm. Rate 67 Chest x-ray film personally reviewed by me-cardiomegaly. Prominent mediastinum. Calcified large thoracic aortic arch. Right hilar dominance. Interstitial prominence. X-ray of the colon elbow, tibia-fibula, shoulder, pelvis, 14, had cervical spine CT: Evidence of right distal tibia-fibula fracture, left proximal humeral fracture Assessment and plan: -Right distal tibia-fibula fracture secondary to mechanical fall. Patient at her baseline is nonambulatory. Asked to be transferred from the bed to the chair. Rehab potential is limited. Orthopedic consulted. -Left proximal humerus fracture secondary to fall. Left dominant a sling. Orthopedics consulted -Chronic medical debility. Multifactorial. At her baseline needs help transfer from bed to the wheelchair. 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 Patient has some sensation. 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 Consultation to orthopedics. Follow Coumadin. Home medications resumed. Follow potassium. Check B12 and iron levels. Given the complexity and severity of patient's condition expect the patient to be in the hospital at least for 2 overnights Past Medical History Past Medical History: Cancer, CVA/TIA, Prostate Disorder Additional Past Medical History / Comment(s): aortic aneurysm at 51 years old, Sepsis from UTI History of Any Multi-Drug Resistant Organisms: MRSA Date of last positivie culture/infection: 07/13/2014 MDRO Source:: Right Eye Past Surgical History: Bladder Surgery, Prostate Surgery Additional Past Surgical History / Comment(s): aortic valve rep. 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 Left hip fx with surgery,. right humerus Fx non sugical- 2007. one testical removed. squamous cell cancer face Past Anesthesia/Blood Transfusion Reactions: No Reported Reaction Past Psychological History: Depression Smoking Status: Never smoker Past Alcohol Use History: None Reported Past Drug Use History: None Reported - Past Family History Father Family Medical History: Cancer Additional Family Medical History / Comment(s): lung cancer Mother Family Medical History: Hypertension Additional Family Medical History / Comment(s): osteoporosis Medications and Allergies Home Medications Medication Instructions Recorded Confirmed Type Atorvastatin Calcium [Lipitor] 40 mg PO HS 06/10/19 03/21/22 History Multivitamins, Thera [Multivitamin 1 tab PO DAILY 06/10/19 03/21/22 History (formulary)] Sertraline [Zoloft] 200 mg PO DAILY 06/10/19 03/22/22 History Potassium Chloride ER [K-Dur 20] 20 meq PO DAILY 06/30/19 03/21/22 History Warfarin Sodium [Coumadin] 2.5 mg PO HS 06/30/19 03/21/22 History Aspirin EC [Ecotrin Low Dose] 81 mg PO HS 10/23/19 03/21/22 History Finasteride [Proscar] 5 mg PO DAILY 10/23/19 03/22/22 History amLODIPine [Norvasc] 2.5 - 5 mg PO HS PRN 10/23/19 03/22/22 History Calm Sleep Tabs 2 tab PO HS 01/17/21 03/21/22 History Potassium Chloride ER [K-Dur 20] 20 meq PO MOWEFR@2100 01/17/21 03/21/22 History Spironolactone [Aldactone] 12.5 mg PO DAILY 01/17/21 03/22/22 History Cholecalciferol (Vitamin D3) 125 mcg PO DAILY 03/21/22 03/21/22 History [Vitamin D3 (125 MCG = 5,000 IU)] Allergies Allergy/AdvReac Type Severity Reaction Status Date / Time morphine AdvReac Hallucinati Verified 03/21/22 15:00 ons Physical Exam Vitals: Vital Signs Temp Pulse Pulse Resp BP BP Pulse Ox 03/22/22 07:25 98.4 F 72 17 118/61 92 L 03/22/22 02:00 98.8 F 78 17 118/65 92 L 03/21/22 20:00 97.9 F 83 16 120/64 91 L 03/21/22 16:40 18 91 L 03/21/22 16:25 97.6 F 77 18 129/75 81 L 03/21/22 15:10 78 18 152/89 95 03/21/22 12:52 97.6 F 58 L 18 182/90 92 L Intake and Output 03/21/22 03/22/22 03/22/22 22:59 06:59 14:59 Other: Voiding Method Diaper # Voids 2 Weight 90.718 kg Results CBC & Chem 7: 03/21/22 13:05 03/21/22 13:05 Labs: Abnormal Lab Results - Last 24 Hours (Table) 03/21/22 03/21/22 03/21/22 Range/Units 13:05 13:05 13:05 WBC 15.0 H (3.8-10.6) k/uL RBC 3.90 L (4.30-5.90) m/uL Hgb 11.9 L (13.0-17.5) gm/dL Hct 37.5 L (39.0-53.0) % Neutrophils # 13.5 H (1.3-7.7) k/uL Lymphocytes # 0.8 L (1.0-4.8) k/uL PT 23.2 H (9.0-12.0) sec INR 2.3 H (<1.2) APTT 32.5 H (22.0-30.0) sec Glucose 123 H (74-99) mg/dL Thrombosis Risk Factor Assmnt - Choose All That Apply Each Factor Represents 1 point: Medical pt on bed rest, Obesity (BMI >25) Each Risk Factor Represents 3 Points: Age 75 years or older Thrombosis Risk Factor Assessment Total Risk Factor Score: 5 Thrombosis Risk Factor Assessment Level: High Risk
[2022-03-22] MEDS ORDERED: HYDROcodone/APAP 5-325MG 1 EACH TAB PO STA (14:38)
[2022-03-22] MEDS: MULTIVITAMINS, THERA 1 EACH TAB PO SCH (16:10)
[2022-03-22] MEDS: SPIRONOLACTONE 25 MG TAB PO SCH (16:10)
[2022-03-22] MEDS: FINASTERIDE 5 MG TAB PO SCH (16:10)
[2022-03-22] MEDS: SERTRALINE 100 MG TAB PO SCH (16:10)
[2022-03-22] MEDS: POTASSIUM CHLORIDE ER 20 MEQ TAB.ER PO SCH ×2 (16:34→20:54)
--- NOTE | 2022-03-22 19:11 | P.CNOR ---
History of Present Illness - [facility] Consult date: 03/22/22 Consult reason: fracture History of present illness: Patient is a pleasant 86 year old male seen at bedside this am in consultation for right distal tibia and proximal fibula fracture. He was admitted through the ED yesterday after suffering a fall at home. 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 He has family member assist him with his daily living. He has pain at right leg as expected. He has some left shoulder arm pain as well where he is in a sling today. He doesn't mobilize much independently at baseline. He has no other complaints currently. Review of Systems All systems: negative Constitutional: Denies chills, Denies fever Eyes: denies blurred vision, denies pain Ears, nose, mouth and throat: Denies headache, Denies sore throat Cardiovascular: Denies chest pain, Denies shortness of breath Respiratory: Denies cough Gastrointestinal: Denies abdominal pain, Denies diarrhea, Denies nausea, Denies vomiting Musculoskeletal: Denies myalgias Integumentary: Denies pruritus, Denies rash Neurological: Denies numbness, Denies weakness Psychiatric: Denies anxiety, Denies depression Endocrine: Denies fatigue, Denies weight change Past Medical History Past Medical History: Cancer, CVA/TIA, Prostate Disorder Additional Past Medical History / Comment(s): aortic aneurysm at 51 years old, Sepsis from UTI History of Any Multi-Drug Resistant Organisms: MRSA Year Discovered:: 07/13/2014 MDRO Source:: Right Eye Past Surgical History: Bladder Surgery, Prostate Surgery Additional Past Surgical History / Comment(s): aortic valve rep. 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 Left hip fx with surgery,. right humerus Fx non sugical- 2007. one testical removed. squamous cell cancer face Past Anesthesia/Blood Transfusion Reactions: No Reported Reaction Past Psychological History: Depression Smoking Status: Never smoker Past Alcohol Use History: None Reported Past Drug Use History: None Reported - Past Family History Father Family Medical History: Cancer Additional Family Medical History / Comment(s): lung cancer Mother Family Medical History: Hypertension Additional Family Medical History / Comment(s): osteoporosis Medications and Allergies Home Medications Medication Instructions Recorded Confirmed Type Atorvastatin Calcium [Lipitor] 40 mg PO HS 06/10/19 03/21/22 History Multivitamins, Thera [Multivitamin 1 tab PO DAILY 06/10/19 03/21/22 History (formulary)] Sertraline [Zoloft] 200 mg PO DAILY 06/10/19 03/22/22 History Potassium Chloride ER [K-Dur 20] 20 meq PO DAILY 06/30/19 03/21/22 History Warfarin Sodium [Coumadin] 2.5 mg PO HS 06/30/19 03/21/22 History Aspirin EC [Ecotrin Low Dose] 81 mg PO HS 10/23/19 03/21/22 History Finasteride [Proscar] 5 mg PO DAILY 10/23/19 03/22/22 History amLODIPine [Norvasc] 2.5 - 5 mg PO HS PRN 10/23/19 03/22/22 History Calm Sleep Tabs 2 tab PO HS 01/17/21 03/21/22 History Potassium Chloride ER [K-Dur 20] 20 meq PO MOWEFR@2100 01/17/21 03/21/22 History Spironolactone [Aldactone] 12.5 mg PO DAILY 01/17/21 03/22/22 History Cholecalciferol (Vitamin D3) 125 mcg PO DAILY 03/21/22 03/21/22 History [Vitamin D3 (125 MCG = 5,000 IU)] Allergies Allergy/AdvReac Type Severity Reaction Status Date / Time morphine AdvReac Hallucinati Verified 03/21/22 15:00 ons Physical Examination Inspection of right lower extremity shows short leg splint in place which is taken down. There is mild erythema at the distal right tibia. No wounds. No deformity. The knee is nontender. No effusion. Painless ROM of knee and hip. Ankle ROM not tested due to fracture. Calf is soft nontender. NVI with motor and sensation throughout right LE. 2+ DP pulse and less than 2 sec cap refill present Left upper extremity. No wounds or deformity. ROM of shoulder not tested due to fracture. No pain with elbow ROM. NVI, 2+ radial pulse present Results - Labs Labs: H & H 03/21/22 Range/Units 13:05 Hgb 11.9 L (13.0-17.5) gm/dL Hct 37.5 L (39.0-53.0) % Coagulation 03/21/22 Range/Units 13:05 INR 2.3 H (<1.2) Result Diagrams: 03/21/22 13:05 03/21/22 13:05 - Diagnostic results Shoulder x-ray: report reviewed, image reviewed Ankle/Foot x-ray: report reviewed, image reviewed Assessment and Plan (1) Tibial fracture Narrative/Plan: Patient has been reviewed with Dr. Mata. No plans for immediate surgical intervention. He is placed in a well padded long leg splint. I advised on ice and elevation. Non weight bearing. He may continue sling for let upper extremity. We will continue to monitor. Current Visit: Yes Status: Acute Priority: Medium Code(s): S82.209A - UNSP FRACTURE OF SHAFT OF UNSP TIBIA, INIT FOR CLOS FX SNOMED Code(s): 88222235 Time with Patient: Less than 30
[2022-03-22] MEDS: HYDROcodone/APAP 5-325MG 1 EACH TAB PO PRN (19:54)
[2022-03-22] MEDS: FAMOTIDINE 20 MG TAB PO SCH (20:54)
[2022-03-22] MEDS: ATORVASTATIN 40 MG TAB PO SCH (20:54)
[2022-03-22] MEDS: ASPIRIN 81 MG PO SCH (20:54)
[2022-03-22] MEDS: ALPRAZolam 0.25 MG TAB PO PRN (20:54)
[2022-03-22] MEDS: WARFARIN 2.5 MG TAB PO SCH (20:55)
[2022-03-22] MEDS ORDERED: POTASSIUM CHLORIDE ER 20 MEQ TAB.ER PO SCH (21:00)
[2022-03-22] MEDS: ACETAMINOPHEN TAB 325 MG TAB PO PRN (22:42)
[2022-03-22 22:45] LABS: Glucose,Whole Blood 139 mg/dL (75-99)
--- NOTE | 2022-03-22 23:42 | XR ---
EXAMINATION TYPE: XR chest 1V portable DATE OF EXAM: 03/22/2022 COMPARISON: NONE HISTORY: Short of breath TECHNIQUE: Single view FINDINGS: There is patchy atelectasis at the lung bases. There is coarse interstitial density. There are sternal wires. Costophrenic angles show no definite pleural fluid. No obvious heart failure. IMPRESSION: Fibrotic pulmonary changes and atelectasis at the lung bases. This appears increased comp ared to yesterday. No obvious heart failure.
[2022-03-23] MEDS: HYDROcodone/APAP 5-325MG 1 EACH TAB PO PRN (01:38)
[2022-03-23 06:05] LABS: INR 1.9 (<1.2); Prothrombin Time 19.4 sec (9.0-12.0)
[2022-03-23] MEDS: POTASSIUM CHLORIDE ER 20 MEQ TAB.ER PO SCH (08:26)
[2022-03-23] MEDS: SPIRONOLACTONE 25 MG TAB PO SCH (08:26)
[2022-03-23] MEDS: CHOLECALCIFEROL 125 MCG (5000 IU) TABLET PO SCH (08:26)
[2022-03-23] MEDS: SERTRALINE 100 MG TAB PO SCH (08:26)
[2022-03-23] MEDS: FINASTERIDE 5 MG TAB PO SCH (08:26)
[2022-03-23] MEDS: FAMOTIDINE 20 MG TAB PO SCH ×2 (08:26→21:19)
[2022-03-23] MEDS: MULTIVITAMINS, THERA 1 EACH TAB PO SCH (08:26)
[2022-03-23] MEDS ORDERED: diazePAM 2 MG TAB PO PRN (09:37)
[2022-03-23 09:54] LABS: % Iron Saturation 5.5 (15.00-50.00)
--- NOTE | 2022-03-23 11:15 | P.PN ---
Subjective Progress Note Date: 03/23/22 Principal diagnosis: Right tib fib fracture Left proximal humerus fracture Patient is seen at bedside this morning regarding his right distal tibia/proximal fibula fractures as well as left humeral head fracture. He was placed in a well padded long leg splint yesterday and has a sling for left upper extremity. He has no new complaints. He states the splint is comfortable. He de nies new numbness, calf pain or other. Objective - Vital Signs Vital signs: Vital Signs Temp 97.9 F 03/23/22 06:18 Pulse 95 03/23/22 01:32 Resp 22 03/23/22 06:18 BP 106/69 03/23/22 01:32 Pulse Ox 100 03/23/22 08:48 Intake & Output 03/22/22 03/23/22 03/23/22 18:59 06:59 18:59 Other: Voiding Method Diaper # Voids 0 2 # Bowel Movements 1 - Exam Inspection shows long leg splint in place and intact. All toes are visible. They have brisk capillary refill. Sensation and motor is intact in all toes. Left upper extremity shows no deformity. ROM not tested due to fracture. NVI throughout left upper extremity. - Constitutional General appearance: Present: no acute distress - Labs CBC & Chem 7: 03/21/22 13:05 03/21/22 13:05 Labs: Abnormal Lab Results - Last 24 Hours (Table) 03/22/22 03/23/22 Range/Units 22:44 05:28 PT 19.4 H (9.0-12.0) sec INR 1.9 H (<1.2) POC Glucose (mg/dL) 139 H (75-99) mg/dL Assessment and Plan (1) Tibial fracture Narrative/Plan: He will continue in well padded long leg splint. I advised on continued ice and elevation. He is to remain Non weight bearing. He may continue sling for left upper extremity. Non weightebaring with left upper extremity as well. We will adjust his pain medications as it is reported he was having some adverse reactions to the norco and xanax. [facility] from orthopedic standpoint when okay with IM. He is to follow up as an outpatient and keep splint intact. We will continue to monitor. Current Visit: Yes Status: Acute Priority: Medium Code(s): S82.209A - UNSP FRACTURE OF SHAFT OF UNSP TIBIA, INIT FOR CLOS FX SNOMED Code(s): 71601338 Time with Patient: Less than 30
[2022-03-23] MEDS: traMADol 50 MG TAB PO PRN ×2 (12:26→22:27)
--- NOTE | 2022-03-23 12:30 | FL ---
EXAMINATION TYPE: FL barium swallow w video DATE OF EXAM: 03/23/2022 COMPARISON: NONE HISTORY: Intermittent choking. The patient was evaluated in the lateral projection during real-time fluoroscopy, during ingestion of barium mixed with liquids. Patient showed delay in initiation of the swallow in multiple locations. No aspiration or laryngeal penetration. See report from speech pathology. 3.43 minutes fluoroscopy time, no images obtained
[2022-03-23 14:00] VITALS: BMI 26.4
--- NOTE | 2022-03-23 18:19 | P.PN ---
Progress Note - Text Progress Note Date: 03/23/22 Chief Complaint: Fall This is a pleasant 86-year-old patient who follows with visiting physicians Dr. Kurtz. Patient lives with his daughter Diana and present at the bedside is patient's power of workers compensation defense attorney her other Dr. Huy Jamil/BARRETT. 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 Or the period of last 1 year has progressively become weak. Had been using a hemiwalker prior to that. Now just about able to transfer to the wheelchair. Was up to the sink to wash up. Patient is able to feed himself with his right arm. This may diapers. For some time patient appetite is gone down. The last 2 weeks patient had a congested cough. Patient sometimes also chokes. Yesterday patient was at the sink washing himself. Daughter stepped out for a minute. He dropped something before bedtime to avoid any fell forward. As a result patient has a fracture of the right distal tibia and fibula and also injury to the left shoulder. Most of the history is obtained by the daughter the bedside. Patient is able to answer some simple questions. Does note dizziness, lightheadedness no chest pain or palpitation. This was purely a mechanical fall. Due to poor balance. He has sensation of the left arm and leg. March 23: A well padded long leg splint was placed on the right leg. Non-weight bearing. Ice and elevation. Laying in the left upper extremity. Overnight patient aspirated. Was hypoxic. On 8 L of oxygen this morning. Patient went for a modified barium swallow. No obvious aspiration. Put on a pured diet and thin liquids. No straws. Spoke to patient's daughter Diana in the daytime. Does speak to patient's other Dr. Baca this evening. Active Medications Acetaminophen (Acetaminophen Tab 325 Mg Tab) 650 mg PO Q6HR PRN PRN Reason: Mild Pain or Fever > 100.5 Last Admin: 03/22/22 22:42 Dose: 650 mg Documented by: Hydrocodone Bitart/Acetaminophen (Hydrocodone/Apap 5-325mg 1 Each Tab) 1 each PO Q6HR PRN PRN Reason: Moderate Pain Last Admin: 03/22/22 12:45 Dose: 1 each Documented by: Hydrocodone Bitart/Acetaminophen (Hydrocodone/Apap 5-325mg 1 Each Tab) 2 each PO Q6HR PRN PRN Reason: Severe Pain Last Admin: 03/23/22 01:38 Dose: 2 each Documented by: Aspirin (Aspirin 81 Mg) 81 mg PO [facility] Last Admin: 03/22/22 20:54 Dose: 81 mg Documented by: Atorvastatin Calcium (Atorvastatin 40 Mg Tab) 40 mg PO HS [facility] Last Admin: 03/22/22 20:54 Dose: 40 mg Documented by: Cholecalciferol (Cholecalciferol 125 Mcg (5000 Iu) Tablet) 125 mcg PO DAILY [facility] Last Admin: 03/23/22 08:26 Dose: 125 mcg Documented by: Famotidine (Famotidine 20 Mg Tab) 20 mg PO BID [facility] Last Admin: 03/23/22 08:26 Dose: 20 mg Documented by: Finasteride (Finasteride 5 Mg Tab) 5 mg PO DAILY [facility] Last Admin: 03/23/22 08:26 Dose: 5 mg Documented by: Miscellaneous Information (Warfarin Per Pharmacy) 1 each MISCELLANE DIRECTED PRN PRN Reason: Per Protocol Multivitamins (Multivitamins, Thera 1 Each Tab) 1 each PO DAILY [facility] Last Admin: 03/23/22 08:26 Dose: 1 each Documented by: Naloxone HCl (Naloxone 0.4 Mg/Ml 1 Ml Vial) 0.2 mg IV Q2M PRN PRN Reason: Opioid Reversal Ondansetron HCl (Ondansetron 4 Mg/2 Ml Vial) 4 mg IVP Q8HR PRN PRN Reason: Nausea And Vomiting Potassium Chloride (Potassium Chloride Er 20 Meq Tab.Er) 20 meq PO DAILY [facility] Last Admin: 03/23/22 08:26 Dose: 20 meq Documented by: Potassium Chloride (Potassium Chloride Er 20 Meq Tab.Er) 20 meq PO MOWEFR@2100 [facility] Last Admin: 03/22/22 20:54 Dose: 20 meq Documented by: Sertraline HCl (Sertraline 100 Mg Tab) 200 mg PO DAILY [facility] Last Admin: 03/23/22 08:26 Dose: 200 mg Documented by: Tramadol HCl (Tramadol 50 Mg Tab) 50 mg PO QID PRN PRN Reason: Pain Last Admin: 03/23/22 12:26 Dose: 50 mg Documented by: Warfarin Sodium (Warfarin 2.5 Mg Tab) 2.5 mg PO [facility]; Protocol Last Admin: 03/22/22 20:55 Dose: 2.5 mg Documented by: Past medical history to include: Stroke with left-sided weakness, prostate surgery for bladder cancer, aortic dissection, aortic valve repair, one testicle removed, depression. Social history: Lives with his daughter Diana. Patient's other daughter Huy Jamil is the DPOAE. Patient needs help transfer from bed to the chair. Has a lift. No hist ory of smoking or alcohol Family history: Lung cancer Physical examination: VITAL SIGNS: 98.5, 74, 20, 90/54, 92% on 8 L GENERAL: reclining in bed, awake, tired. EYES: Pupils equal. Conjunctiva normal. HEENT: External appearance of nose and ears normal, oral cavity grossly normal. Decreased hearing NECK: JVD not raised; masses not palpable. HEART: First and second heart sounds are normal; no edema. LUNGS:[ Respiratory rate normal; decreased breath sounds. ABDOMEN: Soft, nontender, liver spleen not palpable, no masses palpable. PSYCH: Patient able to answer simple questions. MUSCULOSKELETAL: Limited range of motion left shoulder. Right lower extremity in the long splint padded Evidence of OA. NEUROLOGICAL: [Cranial nerves grossly intact; no facial asymmetry, decreased power on the left side. INVESTIGATIONS, reviewed in the clinical context: I 10 TIBC 189% saturation 5.5 transferrin 135 B12 477 White count 15 hemoglobin 11.9 platelets 341 INR 2.3 sodium 139 potassium 4 BUN 10 creatinine 0.79 Troponin I less than 0.012 EKG tracing personally reviewed by me-normal sinus rhythm. Rate 67 Chest x-ray film personally reviewed by me-cardiomegaly. Prominent mediastinum. Calcified large thoracic aortic arch. Right hilar dominance. Interstitial prominence. X-ray of the colon elbow, tibia-fibula, shoulder, pelvis, 14, had cervical spine CT: Evidence of right distal tibia-fibula fracture, left proximal humeral fracture Assessment and plan: -Right distal tibia-fibula fracture secondary to mechanical fall. Patient at her baseline is nonambulatory. Asked to be transferred from the bed to the chair. Rehab potential is limited. Long splint padded place. Nonweightbearing. Elevation. -Aspiration pneumonia Aspiration precautions. IV Zosyn. -Acute hypoxic respiratory failure from pneumonia Currently on 8 L of nasal cannula. -Chronic dysphagia. No aspiration on modified barium. Pured diet. Thin liquids. No straws. As per speech therapy. -Left proximal humerus fracture secondary to fall. Left arm in a sling. -Chronic medical debility. Multifactorial. At her baseline was needing help transfer from bed to the wheelchair. 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 Patient has some sensation. 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 No surgical intervention per orthopedics. Right leg long splint. Left arm in a sling. Had modified barium swallow done today. Started IV Zosyn oxygen. Prognosis guarded. Spoke to her daughter Diana at the bedside. And the nurse. Advance care planning: Spoke to patient is Dr. Kinjal Jamil at the bedside and her . Patient's only under palliative care with the residential home care. Lengthy discussion was held. Looking at patient to go home and at some more help. Hold off hospice and now depending on clinical course. Different questions were answered. Care plan was discussed. It'll depend on how patient does clinically next 24-48 hours. Time spent for this about 25 minutes
[2022-03-23] MEDS: PIPERACILLIN-TAZOBACTAM 3.375 GM in SODIUM CHLORIDE 0.9% 100 ML IVPB SCH (20:00)
[2022-03-23] MEDS: ATORVASTATIN 40 MG TAB PO SCH (21:19)
[2022-03-23] MEDS: ASPIRIN 81 MG PO SCH (21:19)
[2022-03-23] MEDS: WARFARIN 2.5 MG TAB PO SCH (21:20)
[2022-03-24] MEDS: HYDROcodone/APAP 5-325MG 1 EACH TAB PO PRN (01:41)
[2022-03-24] MEDS: PIPERACILLIN-TAZOBACTAM 3.375 GM in SODIUM CHLORIDE 0.9% 100 ML IVPB SCH ×3 (04:14→20:43)
[2022-03-24] MEDS: traMADol 50 MG TAB PO PRN ×3 (04:26→20:43)
[2022-03-24 06:10] LABS: Prothrombin Time 19.8 sec (9.0-12.0)
[2022-03-24] MEDS: TAMSULOSIN 0.4 MG CAP.ER.24H PO SCH (07:09)
[2022-03-24] MEDS: POTASSIUM CHLORIDE ER 20 MEQ TAB.ER PO SCH ×2 (07:09→20:44)
[2022-03-24] MEDS: SERTRALINE 100 MG TAB PO SCH (07:09)
[2022-03-24] MEDS: FINASTERIDE 5 MG TAB PO SCH (07:09)
[2022-03-24] MEDS: FAMOTIDINE 20 MG TAB PO SCH ×2 (07:09→20:44)
[2022-03-24] MEDS: CHOLECALCIFEROL 125 MCG (5000 IU) TABLET PO SCH (07:09)
[2022-03-24] MEDS: MULTIVITAMINS, THERA 1 EACH TAB PO SCH (07:09)
--- NOTE | 2022-03-24 09:37 | P.PN ---
Subjective Progress Note Date: 03/24/22 Principal diagnosis: Right tib fib fracture Left proximal humerus fracture Patient is seen at bedside this morning regarding his right distal tibia/proximal fibula fractures as well as left humeral head fracture. He has been in a well padded long leg splint and has a sling for left upper extremity. He has no new complaints today. He states the splint is comfortable. He denies n ew numbness, calf pain or other. Objective - Vital Signs Vital signs: Vital Signs Temp 97.8 F 03/24/22 08:00 Pulse 55 L 03/24/22 08:00 Resp 16 03/24/22 08:00 BP 122/69 03/24/22 08:00 Pulse Ox 95 03/24/22 08:00 Intake & Output 03/23/22 03/24/22 03/24/22 18:59 06:59 18:59 Output Total 1000 Balance -1000 Weight 90.718 kg Output: Urine 1000 Straight 500 Other: Voiding Method Diaper External Catheter - Exam Inspection shows long leg splint in place and intact. All toes are visible. They have brisk capillary refill. Sensation and motor is intact in all toes. Left upper extremity shows no deformity. ROM not tested due to fracture. NVI throughout left upper extremity. - Constitutional General appearance: Present: no acute distress - Labs CBC & Chem 7: 03/21/22 13:05 03/21/22 13:05 Labs: Abnormal Lab Results - Last 24 Hours (Table) 03/23/22 03/24/22 Range/Units 05:28 05:07 PT 19.8 H (9.0-12.0) sec INR 2.0 H (<1.2) Iron 10 L (65-175) ug/dL TIBC 189 L (228-460) ug/dL % Saturation 5.50 L (15.00-50.00) Transferrin 135.0 L (204.0-354.0) mg/dL Assessment and Plan (1) Tibial fracture Narrative/Plan: He will continue in well padded long leg splint. I advised on continued ice and elevation. He is to remain Non weight bearing. He may continue sling for left upper extremity for comfort. Non weightebaring with left upper extremity as well. He may transfer to [facility] vs home from orthopedic standpoint when okay with IM. He is to follow up as an outpatient and keep splint intact, clean and dry. We will sign off for now and see him as outpatient Current Visit: Yes Status: Acute Priority: Medium Code(s): S82.209A - UNSP FRACTURE OF SHAFT OF UNSP TIBIA, INIT FOR CLOS FX SNOMED Code(s): 36232143 Time with Patient: Less than 30
--- NOTE | 2022-03-24 14:28 | P.PN ---
Progress Note - Text Progress Note Date: 03/24/22 Chief Complaint: Fall This is a pleasant 86-year-old patient who follows with visiting physicians Dr. Kurtz. Patient lives with his daughter Diana and present at the bedside is patient's power of peanut farmer her other Dr. Huy Jamil/BARRETT. 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 Or the period of last 1 year has progressively become weak. Had been using a hemiwalker prior to that. Now just about able to transfer to the wheelchair. Was up to the sink to wash up. Patient is able to feed himself with his right arm. This may diapers. For some time patient appetite is gone down. The last 2 weeks patient had a congested cough. Patient sometimes also chokes. Yesterday patient was at the sink washing himself. Daughter stepped out for a minute. He dropped something before bedtime to avoid any fell forward. As a result patient has a fracture of the right distal tibia and fibula and also injury to the left shoulder. Most of the history is obtained by the daughter the bedside. Patient is able to answer some simple questions. Does note dizziness, lightheadedness no chest pain or palpitation. This was purely a mechanical fall. Due to poor balance. He has sensation of the left arm and leg. March 23: A well padded long leg splint was placed on the right leg. Non-weight bearing. Ice and elevation. Laying in the left upper extremity. Overnight patient aspirated. Was hypoxic. On 8 L of oxygen this morning. Patient went for a modified barium swallow. No obvious aspiration. Put on a pured diet and thin liquids. No straws. Spoke to patient's daughter Diana in the daytime. Does speak to patient's other Dr. Baca this evening. March 24: Patient was on 7 L of oxygen this morning. It was dropped down to 3 L. 92%. Eating. I think liquids per speech therapy. Aspiration precautions. Daughter Bria the bedside. Demonstrated how to use incentive spirometry. Discussed. Occasional cough. Oral intake fair. On IV Zosyn for aspiration pneumonia. Active Medications Acetaminophen (Acetaminophen Tab 325 Mg Tab) 650 mg PO Q6HR PRN PRN Reason: Mild Pain or Fever > 100.5 Last Admin: 03/22/22 22:42 Dose: 650 mg Documented by: Hydrocodone Bitart/Acetaminophen (Hydrocodone/Apap 5-325mg 1 Each Tab) 1 each PO Q6HR PRN PRN Reason: Moderate Pain Last Admin: 03/22/22 12:45 Dose: 1 each Documented by: Hydrocodone Bitart/Acetaminophen (Hydrocodone/Apap 5-325mg 1 Each Tab) 2 each PO Q6HR PRN PRN Reason: Severe Pain Last Admin: 03/24/22 01:41 Dose: 2 each Documented by: Aspirin (Aspirin 81 Mg) 81 mg PO HS [facility] Last Admin: 03/23/22 21:19 Dose: 81 mg Documented by: Atorvastatin Calcium (Atorvastatin 40 Mg Tab) 40 mg PO HS [facility] Last Admin: 03/23/22 21:19 Dose: 40 mg Documented by: Cholecalciferol (Cholecalciferol 125 Mcg (5000 Iu) Tablet) 125 mcg PO DAILY [facility] Last Admin: 03/24/22 07:09 Dose: 125 mcg Documented by: Famotidine (Famotidine 20 Mg Tab) 20 mg PO BID [facility] Last Admin: 03/24/22 07:09 Dose: 20 mg Documented by: Finasteride (Finasteride 5 Mg Tab) 5 mg PO DAILY [facility] Last Admin: 03/24/22 07:09 Dose: 5 mg Documented by: Piperacillin Sod/Tazobactam (Sod 3.375 gm/ Sodium Chloride) 100 mls @ 25 mls/hr IVPB Q8H [facility]; Protocol Last Admin: 03/24/22 11:18 Dose: 25 mls/hr Documented by: Miscellaneous Information (Warfarin Per Pharmacy) 1 each MISCELLANE DIRECTED PRN PRN Reason: Per Protocol Multivitamins (Multivitamins, Thera 1 Each Tab) 1 each PO DAILY [facility] Last Admin: 03/24/22 07:09 Dose: 1 each Documented by: Naloxone HCl (Naloxone 0.4 Mg/Ml 1 Ml Vial) 0.2 mg IV Q2M PRN PRN Reason: Opioid Reversal Ondansetron HCl (Ondansetron 4 Mg/2 Ml Vial) 4 mg IVP Q8HR PRN PRN Reason: Nausea And Vomiting Potassium Chloride (Potassium Chloride Er 20 Meq Tab.Er) 20 meq PO DAILY [facility] Last Admin: 03/24/22 07:09 Dose: 20 meq Documented by: Potassium Chloride (Potassium Chloride Er 20 Meq Tab.Er) 20 meq PO MOWEFR@2100 [facility] Last Admin: 03/22/22 20:54 Dose: 20 meq Documented by: Sertraline HCl (Sertraline 100 Mg Tab) 200 mg PO DAILY [facility] Last Admin: 03/24/22 07:09 Dose: 200 mg Documented by: Tamsulosin HCl (Tamsulosin 0.4 Mg Cap.Er.24h) 0.4 mg PO PC-BRKFST [facility] Last Admin: 03/24/22 07:09 Dose: 0.4 mg Documented by: Tramadol HCl (Tramadol 50 Mg Tab) 50 mg PO QID PRN PRN Reason: Pain Last Admin: 03/24/22 09:43 Dose: 50 mg Documented by: Warfarin Sodium (Warfarin 2.5 Mg Tab) 2.5 mg PO [facility]; Protocol Last Admin: 03/23/22 21:20 Dose: 2.5 mg Documented by: Past medical history to include: Stroke with left-sided weakness, prostate surgery for bladder cancer, aortic dissection, aortic valve repair, one testicle removed, depression. Social history: Lives with his daughter Diana. Patient's other daughter Huy Jamil is the DPOAE. Patient needs help transfer from bed to the chair. Has a lift. No history of smoking or alcohol Family history: Lung cancer Physical examination: VITAL SIGNS: 97.8, 55, 16, 122 / 69, 95% on 7 L GENERAL: reclining in bed, awake, tired. EYES: Pupils equal. Conjunctiva normal. HEENT: External appearance of nose and ears normal, oral cavity grossly normal. Decreased hearing NECK: JVD not raised; masses not palpable. HEART: First and second heart sounds are normal; no edema. LUNGS:[ Respiratory rate increased; decreased breath sounds. ABDOMEN: Soft, nontender, liver spleen not palpable, no masses palpable. PSYCH: Patient able to answer simple questions. MUSCULOSKELETAL: Limited range of motion left shoulder. Right lower extremity in the long splint padded Evidence of OA. NEUROLOGICAL: [Cranial nerves grossly intact; no facial asymmetry, decreased power on the left side. INVESTIGATIONS, reviewed in the clinical context: March 24: Pro-calcitonin 2.46 I 10 TIBC 189% saturation 5.5 transferrin 135 B12 477 White count 15 hemoglobin 11.9 platelets 341 INR 2.3 sodium 139 potassium 4 BUN 10 creatinine 0.79 Troponin I less than 0.012 EKG tracing personally reviewed by me-normal sinus rhythm. Rate 67 Chest x-ray film personally reviewed by me-cardiomegaly. Prominent mediastinum. Calcified large thoracic aortic arch. Right hilar dominance. Interstitial prominence. X-ray of the colon elbow, tibia-fibula, shoulder, pelvis, 14, had cervical spine CT: Evidence of right distal tibia-fibula fracture, left proximal humeral fracture Assessment and plan: -Right distal tibia-fibula fracture secondary to mechanical fall. Patient at her baseline is nonambulatory. Asked to be transferred from the bed to the chair. Rehab potential is limited. Long splint padded place. Nonweightbearing. Elevation. -Aspiration pneumonia: Slow to respond Aspiration precautions. IV Zosyn. -Acute hypoxic respiratory failure from pneumonia Currently on 7 L of nasal cannula. -Chronic dysphagia. No aspiration on modified barium. Pured diet. thick liquids. No straws. As per speech therapy. -Left proximal humerus fracture secondary to fall. Left arm in a sling. -Chronic medical debility. Multifactorial. At her baseline was needing help transfer from bed to the wheelchair. 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 Patient has some sensation. 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 Oxygen decreased to 4 L. Demonstrated incentive spirometry. Discussed with Dr. Ortiz at the bedside. Other medications to continue. Patient will need hospital bed at home for aspiration precautions. Total time spent about 40 minutes with over 25 minutes of discussion.
[2022-03-24] MEDS: WARFARIN 2.5 MG TAB PO SCH (20:44)
[2022-03-24] MEDS: ATORVASTATIN 40 MG TAB PO SCH (20:44)
[2022-03-24] MEDS: ASPIRIN 81 MG PO SCH (20:44)
[2022-03-25] MEDS: HYDROcodone/APAP 5-325MG 1 EACH TAB PO PRN ×2 (01:27→12:54)
[2022-03-25] MEDS: PIPERACILLIN-TAZOBACTAM 3.375 GM in SODIUM CHLORIDE 0.9% 100 ML IVPB SCH ×2 (02:55→13:06)
[2022-03-25] MEDS: FAMOTIDINE 20 MG TAB PO SCH (07:21)
[2022-03-25] MEDS: POTASSIUM CHLORIDE ER 20 MEQ TAB.ER PO SCH (07:22)
[2022-03-25] MEDS: TAMSULOSIN 0.4 MG CAP.ER.24H PO SCH (07:22)
[2022-03-25] MEDS: MULTIVITAMINS, THERA 1 EACH TAB PO SCH (07:22)
[2022-03-25] MEDS: CHOLECALCIFEROL 125 MCG (5000 IU) TABLET PO SCH (07:22)
[2022-03-25] MEDS: SERTRALINE 100 MG TAB PO SCH (07:22)
[2022-03-25] MEDS: FINASTERIDE 5 MG TAB PO SCH (07:23)
[2022-03-25] MEDS: ACETAMINOPHEN TAB 325 MG TAB PO PRN (07:27)
[2022-03-25] MEDS: traMADol 50 MG TAB PO PRN (08:35)
[2022-03-25 10:05] LABS: INR 2.1 (<1.2)
--- NOTE | 2022-03-25 12:55 | P.EN ---
COPD in a non smoker with exacerbation from pneumia causung hypoxia
[2022-03-25 16:23] VITALS: BP 151/74; PULSE 66; RESP 14; TEMP 97.6
--- NOTE | 2022-03-25 21:15 | P.DS ---
Providers Date of admission: 03/21/22 14:57 Expected date of discharge: 03/25/22 Attending physician: Reymundo Costa Consults: 03/21/22 14:58 Consult Physician Routine Consulting Provider: Vinny Mata Consult Reason/Comments: tibial shaft fracture Do you want consulting provider notified?: Already Contacted Primary care physician: Guido Kurtz MD Hospital Course: Chief Complaint: Fall This is a pleasant 86-year-old patient who follows with visiting physicians Dr. Kurtz. Patient lives with his daughter Diana and present at the bedside is lorelei mccabe's power of litigation attorney her other Dr. Huy Jamil/BARRETT. 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 Or the period of last 1 year has progressively become weak. Had been using a hemiwalker prior to that. Now just about able to transfer to the wheelchair. Was up to the sink to wash up. Patient is able to feed himself with his right arm. This may diapers. For some time patient appetite is gone down. The last 2 weeks patient had a congested cough. Patient sometimes also chokes. Yesterday patient was at the sink washing himself. Daughter stepped out for a minute. He dropped something before bedtime to avoid any fell forward. As a result patient has a fracture of the right distal tibia and fibula and also injury to the left shoulder. Most of the history is obtained by the daughter the bedside. Patient is able to answer some simple questions. Does note dizziness, lightheadedness no chest pain or palpitation. This was purely a mechanical fall. Due to poor balance. He has sensation of the left arm and leg. March 23: A well padded long leg splint was placed on the right leg. Non-weight bearing. Ice and elevation. Laying in the left upper extremity. Overnight patient aspirated. Was hypoxic. On 8 L of oxygen this morning. Patient went for a modified barium swallow. No obvious aspiration. Put on a pured diet and thin liquids. No straws. Spoke to patient's daughter Diana in the daytime. Does speak to patient's other Dr. Baca this evening. March 24: Patient was on 7 L of oxygen this morning. It was dropped down to 3 L. 92%. Eating. I think liquids per speech therapy. Aspiration precautions. Daughter Bria the bedside. Demonstrated how to use incentive spirometry. Discussed. Occasional cough. Oral intake fair. On IV Zosyn for aspiration pneumonia. March 25: Patient down to 3 L of oxygen. Loco to have underlying COPD. Discussed with daughter the bedside. Spoke leather case finisher. Patient will be discharged today. Overall prognosis guarded. Patient has palliative care at home from [employer] company. Late also called patient's other daughter Phuong at home, questions answered. Discussion and discharge planning more than 35 minutes Past medical history to include: Stroke with left-sided weakness, prostate surgery for bladder cancer, aortic dissection, aortic valve repair, one testicle removed, depression. Social history: Lives with his daughter Diana. Patient's other daughter Huy Jamil is the DPOAE. Patient needs help transfer from bed to the chair. Has a lift. No history of smoking or alcohol Family history: Lung cancer Physical examination: VITAL SIGNS: 97.8, 68, 16, 138/76, 94% on 3 L GENERAL: reclining in bed, awake, tired. EYES: Pupils equal. Conjunctiva normal. HEENT: External appearance of nose and ears normal, oral cavity grossly normal. Decreased hearing NECK: JVD not raised; masses not palpable. HEART: First and second heart sounds are normal; no edema. LUNGS:[ Respiratory rate increased; decreased breath sounds. ABDOMEN: Soft, nontender, liver spleen not palpable, no masses palpable. PSYCH: Patient able to answer simple questions. MUSCULOSKELETAL: Limited range of motion left shoulder. Right lower extremity in the long splint padded Evidence of OA. NEUROLOGICAL: [Cranial nerves grossly intact; no facial asymmetry, decreased power on the left side. INVESTIGATIONS, reviewed in the clinical context: March 25: INR 2.1 March 24: Pro-calcitonin 2.46 I 10 TIBC 189% saturation 5.5 transferrin 135 B12 477 White count 15 hemoglobin 11.9 platelets 341 INR 2.3 sodium 139 potassium 4 BUN 10 creatinine 0.79 Troponin I less than 0.012 EKG tracing personally reviewed by me-normal sinus rhythm. Rate 67 Chest x-ray film personally reviewed by me-cardiomegaly. Prominent mediastinum. Calcified large thoracic aortic arch. Right hilar dominance. Interstitial prominence. X-ray of the colon elbow, tibia-fibula, shoulder, pelvis, 14, had cervical spine CT: Evidence of right distal tibia-fibula fracture, left proximal humeral fracture Assessment and plan: -Right distal tibia-fibula fracture secondary to mechanical fall. Patient at her baseline is nonambulatory. Asked to be transferred from the bed to the chair. Rehab potential is limited. Long splint padded place. Nonweightbearing. Elevation. -Aspiration pneumonia: Aspiration precautions. IV Zosyn. Augmentin for 7 days -Acute hypoxic respiratory failure from pneumonia and possibly underlying COPD Currently on 3 L of nasal cannula. -Chronic dysphagia. No aspiration on modified barium. Pured diet. thick liquids. No straws. As per speech therapy. -Left proximal humerus fracture secondary to fall. Left arm in a sling. -Chronic medical debility. Multifactorial. At her baseline was needing help transfer from bed to the wheelchair. 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 Patient has some sensation. 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 -Hyperlipidemia Lipitor 40 mg daily at bedtime -Potassium losing kidney disease Likewise potassium supplement on a daily basis -Normocytic anemia Check B12 and iron stores -Coumadin monitoring Follow INR -COPD in a nonsmoker Oxygen supplement -DO NOT RESUSCITATE Disposition: Home Plan - Discharge Summary New Discharge Prescriptions: New Docusate [Colace] 100 mg PO BID #60 capsule Tamsulosin [Flomax] 0.4 mg PO PC-BRKFST #30 HYDROcodone/APAP 5-325MG [[place]el [place]st 5-325] 1 tab PO Q4HR PRN #42 tab PRN Reason: Pain Amoxicillin/Potassium Clav [Augmentin 875-125 Tablet] 1 tab PO Q12HR 1 Days #14 tab Famotidine [Pepcid] 20 mg PO BID #60 tab Continue Sertraline [Zoloft] 200 mg PO DAILY Multivitamins, Thera [Multivitamin (formulary)] 1 tab PO DAILY Atorvastatin Calcium [Lipitor] 40 mg PO HS Warfarin Sodium [Coumadin] 2.5 mg PO HS Aspirin EC [Ecotrin Low Dose] 81 mg PO HS Finasteride [Proscar] 5 mg PO DAILY Cholecalciferol (Vitamin D3) [Vitamin D3 (125 MCG = 5,000 IU)] 125 mcg PO DAILY Discontinued Potassium Chloride ER [K-Dur 20] 20 meq PO DAILY amLODIPine [Norvasc] 2.5 - 5 mg PO HS PRN PRN Reason: High BP Potassium Chloride ER [K-Dur 20] 20 meq PO MOWEFR@2100 Spironolactone [Aldactone] 12.5 mg PO DAILY No Action Calm Sleep Tabs 2 tab PO HS Discharge Medication List Atorvastatin Calcium [Lipitor] 40 mg PO HS 06/10/19 [History] Multivitamins, Thera [Multivitamin (formulary)] 1 tab PO DAILY 06/10/19 [History] Sertraline [Zoloft] 200 mg PO DAILY 06/10/19 [History] Warfarin Sodium [Coumadin] 2.5 mg PO HS 06/30/19 [History] Aspirin EC [Ecotrin Low Dose] 81 mg PO HS 10/23/19 [History] Finasteride [Proscar] 5 mg PO DAILY 10/23/19 [History] Calm Sleep Tabs 2 tab PO HS 01/17/21 [History] Cholecalciferol (Vitamin D3) [Vitamin D3 (125 MCG = 5,000 IU)] 125 mcg PO DAILY 03/21/22 [History] Docusate [Colace] 100 mg PO BID #60 capsule 03/23/22 [Rx] HYDROcodone/APAP 5-325MG [[place] 5-325] 1 tab PO Q4HR PRN #42 tab 03/23/22 [Rx] Amoxicillin/Potassium Clav [Augmentin 875-125 Tablet] 1 tab PO Q12HR 1 Days #14 tab 03/25/22 [Rx] Famotidine [Pepcid] 20 mg PO BID #60 tab 03/25/22 [Rx] Tamsulosin [Flomax] 0.4 mg PO PC-BRKFST #30 03/25/22 [Rx] Follow up Appointment(s)/Referral(s): Guido Kurtz MD [Primary Care Provider] - 1 Week (Dr. Kurtz's office will call to set up an appointment early next week. ) [facility] [NON-STAFF] - As Needed (Hospital bed and oxygen) [facility] [NON-STAFF] - As Needed Vinny Mata MD [STAFF PHYSICIAN] - 04/02/22 2:15 pm Patient Instructions/Handouts: Leg Fracture (DC) Activity/Diet/Wound Care/Special Instructions: nonweightbearing elevate right leg, ice sling to left upper extremity prn for comfort non weightbearing left upper extremity maintain splint, keep clean and dry F/u in office in one week Discharge Disposition: HOME WITH HOME HEALTH SERVICES
== END 2022-03-25 17:41 | disposition home health service (06) | DRG 562 ==
LOC: EC 12:50 → 4SSUR 14:57
PROVIDERS: ADMIT Hospitalist; ATTEND Hospitalist
PROC: 0HQ0XZZ Repair Scalp Skin, External Approach (ICD-10-PCS; principal; 2022-03-21)
DX: S82.301A Unspecified fracture of lower end of right tibia, initial encounter for closed fracture (principal); J96.01 Acute respiratory failure with hypoxia; J69.0 Pneumonitis due to inhalation of food and vomit; S42.292A Other displaced fracture of upper end of left humerus, initial encounter for closed fracture; I69.354 Hemiplegia and hemiparesis following cerebral infarction affecting left non-dominant side; F32.A Depression, unspecified; F03.90 Unspecified dementia, unspecified severity, without behavioral disturbance, psychotic disturbance, mood disturbance, and anxiety; N32.0 Bladder-neck obstruction; R53.81 Other malaise; R13.10 Dysphagia, unspecified; S82.831A Other fracture of upper and lower end of right fibula, initial encounter for closed fracture; S01.81XA Laceration without foreign body of other part of head, initial encounter; D64.9 Anemia, unspecified; N28.9 Disorder of kidney and ureter, unspecified; Z66 Do not resuscitate; E78.5 Hyperlipidemia, unspecified; W18.30XA Fall on same level, unspecified, initial encounter; Z85.51 Personal history of malignant neoplasm of bladder; Y92.009 Unspecified place in unspecified non-institutional (private) residence as the place of occurrence of the external cause; Z87.440 Personal history of urinary (tract) infections; Z86.14 Personal history of Methicillin resistant Staphylococcus aureus infection; Z90.79 Acquired absence of other genital organ(s); Z88.5 Allergy status to narcotic agent; Z85.828 Personal history of other malignant neoplasm of skin; Z98.890 Other specified postprocedural states; Z79.01 Long term (current) use of anticoagulants; Z79.899 Other long term (current) drug therapy; Z80.1 Family history of malignant neoplasm of trachea, bronchus and lung; Z82.49 Family history of ischemic heart disease and other diseases of the circulatory system; Z82.62 Family history of osteoporosis
CPT/HCPCS: 12002; 29515; 36415; 70450; 71045; 72125; 72170; 74230; 80048; 82607; 82728; 83540; 83550; 84145; 84484; 85025; 85610; 85730; 93005; 94760; 96374; 96375; 99285